=== PATIENT | male | born 1975 | race Caucasian/White ===

== ENCOUNTER 2020-05-12 08:01 | Observation (INO) | payer OTHER, SELFPAY ==
[2020-05-12] VITALS (9 sets, daily range): BP systolic 114–153; BP diastolic 65–90; PULSE 75–94; RESP 11–18; TEMP 36.4–37; O2SAT 95–98; BMI 39.4; BMI 40.7
--- NOTE | 2020-05-12 08:54 | EKG12_ITS ---
Test Reason : GI BLEED Blood Pressure : / mmHG Vent. Rate : 091 BPM Atrial Rate : 091 BPM P-R Int : 132 ms QRS Dur : 090 ms QT Int : 386 ms P-R-T Axes : 059 016 035 degrees QTc Int : 474 ms Normal sinus rhythm Nonspecific T- wave Abnormality Inferior MT, age undetermined, cannot be excluded Confirmed by KAVON HOOD, AN AMARIA ([id number]), deputy editor in chief HERIBERTO MEDRANO ([id number]) on 05/17/2020 10:44:40 AM Referred By: PEARL Confirmed By:ANA MARIA JACOBSON MD
[2020-05-12 09:02] LABS: Absolute Lymphocyte Count 2.05 X10^3/uL (0.83-4.51); Absolute Neutrophil Count 5.8 X10^3/uL (2.0-7.7); Basophil# 0.05 X10^3/uL; Basophil% 0.6 % (0-1); Eosinophil# 0.03 X10^3/uL; Eosinophils% 0.4 % (0-5); Hematocrit 40.9 % (40-54); Hemoglobin 13.5 g/dL (13.0-16.5); Lymphocyte # 2.05 X10^3/ul (4.0); Lymphocyte % 23.9 % (19-41); Mean Corpuscular Hgb 31.5 pg (27.0-32.0); Mean Corpuscular Volume 95.3 fL (80-94); Mean Platelet Vol. 10.5 fl (6.2-12.0); Monocyte# 0.55 X10^3/uL; Monocyte% 6.4 % (0-10); NRBC Flagged by Analyzer 0 % (0-5); Neutrophil # 5.78 X10^3/uL (2.7-7.7); Neutrophil % 67.4 % (47-70); Platelet Count 238 K/mm3 (150-450); RBC Distribution Width CV 12.1 % (11.6-14.6); RBC Distribution Width SD 41.7 fl (35.1-43.9); Red Blood Count 4.29 M/mm3 (4.6-6.2); White Blood Count 8.6 K/mm3 (4.4-11.0)
--- NOTE | 2020-05-12 09:17 | ED.VIS.GEN ---
History of Present Illness Chief Complaint: Dizziness Informant: Patient Narrative: Patient is a 45-year-old male with a past medical history of CAD with stents placed who presents to the emergency department for chest pain, shortness of breath. His symptoms have been present since Friday. He did go to an urgent care on Friday and had a coronavirus test which she states was negative. Taking deep breaths does seem to aggravate the pain. Exertion does not make his symptoms worse. Has been constant. Currently rates it as a 6 out of 10. He did take aspirin today. He has not been on Plavix lately but took a leftover dose at the onset of the symptoms. He also took a metoprolol which he has not been taking. He states he did have a fever at the onset of symptoms which was 101 but resolved very quickly without treatment. He has not had a fever since. He denies any calf swelling or leg pain. No prolonged tolerance of immobilization. No history of DVT/PE. Denies any abdominal pain. He has been feeling nauseous but no vomiting. He states at one point he felt like his lips were turning blue. He has been dizzy. Certain head positions do make his dizziness worse. He states that this is resolving. No ear pain or ringing in the ears. No sore throat. No known sick contacts. States he has been very compliant with his mask. He denies smoking cigarettes but did smoke cigars previously. He does have a family history of cardiac disease. Past Medical History - Allergies and Home Meds Allergies/Adverse Reactions: Allergies No Known Allergies Allergy (Verified 05/12/20 08:05) Prior records reviewed: Yes Past Medical History: - - CAD with stents Smoking Status: Former smoker Drugs: None Review of Systems All systems negative except as indicated General: Reports: Fever - Hold. Denies: Chills, Sweats Eyes: Denies: Visual changes - bilaterally, Diplopia ENT: Denies: Rhinorrhea, Sore throat Cardiovascular: Reports: Chest pain. Denies: Palpitations Respiratory: Reports: Dyspnea. Denies: Cough, Dyspnea on exertion Gastrointestinal: Denies: Abdominal pain, Nausea, Vomiting, Diarrhea Musculoskeletal: Denies: Back pain, Extremity Pain Skin: Denies: Rash, Wounds Neurological: Denies: Headache, Weakness, Numbness Physical Exam Vital Signs/Narrative: Vital Signs Temp Pulse Resp BP Pulse Ox 07/31/20 08:21 98 F 82 12 125/90 H 97 05/12/20 08:02 98 F 88 18 153/76 H 97 Inital Vital Signs reviewed: Yes General: Well nourished, Well developed, No Acute Distress Head: Normocephalic, Atraumatic Eyes: Perrl, EOMI ENT: Moist mucous membranes, No rhinorrhea Neck: Supple, Nontender Cardiovascular: Regular rate, Regular rhythm, No murmurs Respiratory: No distress, CTA bilaterally, Chest nontender Abdomen: Soft, Nontender, Nondistended, Normal bowel sounds Back: Nontender, Normal Inspection Extremities: Nontender, No edema. Negative for: Edema, Calf Tenderness Skin: Normal color, No rash Neurological: Alert, Oriented x3, Cranial nerves II-XII grossly intact, Normal Strength, Normal Sensation Psychological: Normal affect, Normal Mood Diagnostic/Tx/Re-eval - EKG Initial EKG Interpretation: - - Rate of 83 bpm and normal sinus rhythm. Normal intervals. Normal axis. No ST elevations or depressions appreciated. Patient does appear to have an S1Q3T3 pattern. Otherwise no other T wave changes. - Medical Decision Making Patient presents to the emergency department for chest pain and shortness of breath. He does have a history of coronary artery disease. EKG, chest x-ray basic lab work being obtained. Urine tested negative for coronavirus this week. Chest x-ray did not show any acute cardiopulmonary abnormality. EKG was not significant for ischemia or arrhythmia. His initial troponin negative. Lab work did not show any significant acute abnormality. Given patient's risk factors including 2 previous stents, dizziness, continued chest pain without a cough I do feel patient best be served in the hospital setting. He did take aspirin prior to coming in today. Patient discussed with hospitalist. He otherwise has been stable throughout ED stay. He is agreeable with this plan. He has not been hypoxic, tachycardic without any unilateral leg swelling or DVT/PE risk factors. Low concern for this. ED Disposition - Plan for ED Patient: Disposition: Acute Care Hospital [facility] Diagnosis: Atypical chest pain, Dyspnea
--- NOTE | 2020-05-12 09:20 | RAD_ITS ---
STUDY: X-RAY CHEST REASON FOR EXAM: Male, 45 years old. DIZZINESS AND INTERMITTENT CP SINCE FRIDAY -- HX MO X2 TECHNIQUE: Single AP portable view of the chest. COMPARISON: None. FINDINGS: EKG electrodes are seen. The lungs are clear and expanded. There is no demonstrated pleural abnormality. Normal size heart. Normal mediastinum and wilder. Normal visualized pulmonary arteries. Normal visualized aortic arch and descending thoracic aorta. Normal visualized thoracic spine. Normal visualized ribs, clavicles, and shoulders. There is no demonstrated abnormality of the visualized soft tissue structures of the upper abdomen. RAD/Chest 1 View (Portable) IMPRESSION: Normal x-ray examination of the chest. Electronically Signed: Neel Begum, at 10:03 EDT , Service support ,
[2020-05-12 09:21] LABS: Anion Gap 3 (5-15); BUN 35 mg/dL (7-18); BUN/Creat Ratio 34.7 RATIO (10-20); Calcium,Total 9.3 mg/dL (8.5-10.1); Chloride 108 mmol/L (98-107); Creatinine, Serum 1.01 mg/dL (0.70-1.30); EST Glomerular Filtration Rate 86 mL/min (>60); Est Glom Filt Rate - Afr Amer 104 mL/min (>60); Estimated Creatinine Clearance 97.37 ml/min; Glucose 117 mg/dL (74-106); Magnesium 1.9 mg/dL (1.6-2.6); Potassium 4.2 mmol/L (3.5-5.1); Sodium Level 137 mmol/L (136-145)
[2020-05-12 09:43] LABS: D-Dimer Quantitative (DVT/PE) <= 0.27 FEU/ug/m (0.27-0.49)
--- NOTE | 2020-05-12 11:21 | NURSING ---
BRIGITTEU OBS OSMANI BOLAÑOS
--- NOTE | 2020-05-12 11:43 | ED.RN ---
covid order was cancelled d/t pt being tested on friday at 1430 and it was negative.
--- NOTE | 2020-05-12 15:11 | STRESSREP ---
Stress Test Report Date: 05/12/2020 Procedure: Pharmacologic stress nuclear imaging study Indications: Chest pain Consent: Per the patient Procedure: The patient underwent pharmacologic (Regadenoson) evaluation with a peak heart rate of 116 beats per minute (65 %predicted maximal heart rate) and a peak blood pressure of 148/82 mmHg. The baseline ECG demonstrated sinus rhythm. EKG during lexiscan infusion revealed no significant ischemic changes. EKG post infusion revealed no significant ischemic changes [There were no cardiac dysrhythmias pretest, during pharmacologic infusion, or recovery]. [There was no complaint of chest discomfort during pharmacologic infusion or recovery]. The examination was discontinued secondary to completion of protocol. Impression: 1. Lexiscan stress test test is negative for Lexiscan infusion induced EKG changes of ischemia. 2. Lexiscan stress test test is negative for Lexiscan infusion induced chest pain. 3. Results of the nuclear portion of the test is as below Myocardial perfusion imaging study: Technique: The patient was injected with 14.4 millicuries of technetium 99m Cardiolite and subsequently rest SPECT Cardiolite nuclear imaging was obtained in the horizontal long, vertical long, and short axis views. The patient underwent pharmacologic (Regadenoson) evaluation. Please see above for details. The patient was injected with 44.9 millicuries of technetium 99m Cardiolite and subsequently stress SPECT Cardiolite nuclear imaging was obtained in the horizontal long, vertical long, and short axis views. A gated Cardiolite study at peak stress was obtained. Interpretation: Rest and stress SPECT Cardiolite nuclear imaging status post realignment, normalization, and attenuation correction demonstrate mildly decreased radioisotope uptake in the inferior wall on both the rest and stress images. On the stress images there is also decrease in the radioisotope uptake in the anterior wall. Gated images reveal mild inferior hypokinesis. The reported LVEF is 51 %. These findings are suggestive of prior inferior infarction and mild anterior ischemia. Impression: 1. There is possible mild anterior ischemia. 2. Estimated ejection fraction is 51%. This note was generated with [employer] (mytaxi)ation software. It may contain incorrect words, spelling, and punctuation that were not noted in checking the note before signing.
--- NOTE | 2020-05-12 15:33 | DCINST_ITS ---
- Discharge Diagnoses Current Active Problems: Current Active and Chronic Problems Atypical chest pain (Acute) Dyspnea (Acute) You will use the following diet at home:: No restrictions Your food should be the consistency of: Regular Your liquids should be the consistency of: Regular/Thin Discharge Activity: Return to Normal Activity Weight Bearing Status: Full weight bearing Additional Instructions: return to ER if having severe chest pain or persistent chest pain Allergies/Adverse Reactions: Allergies No Known Allergies Allergy (Verified 05/12/20 08:05) Medications to take at Discharge Aspirin [Aspirin EC] 81 mg PO DAILY #1 tablet. 05/12/20 Atorvastatin Calcium [Lipitor] 40 mg PO DAILY #30 tab 05/12/20 Clopidogrel Bisulfate [Plavix] 75 mg PO DAILY #30 tab 05/12/20 Metoprolol Tartrate 25 mg PO BID #60 tab 05/12/20 Nitroglycerin [Nitrostat] 0.4 mg SL UD #25 tab.subl 05/12/20 The following prescriptions were given: Aspirin [Aspirin EC] 81 mg PO DAILY #1 tablet. Atorvastatin Calcium [Lipitor] 40 mg PO DAILY #30 tab Transmission Status: [facility] by [id number] Metoprolol Tartrate 25 mg PO BID #60 tab Transmission Status: Received by [id number] Nitroglycerin [Nitrostat] 0.4 mg SL UD #25 tab.subl Transmission Status: Received by [id number] Clopidogrel Bisulfate [Plavix] 75 mg PO DAILY #30 tab Transmission Status: Received by [id number] Primary Care Physician: Kristyn Crouch PA-C [Primary Care Provider] - Test Results: Test results from this visit will be discussed in further detail at your follow- up appointment, if applicable. Please Follow Up With: Dom Blackwood MD When: for heart cath-office will call you
[2020-05-12 15:51] LABS: Cholesterol 213 mg/dL (200); High Density Lipoprotein 29 mg/dL; Triglycerides 270 mg/dL; Very Low Density Lipoprotein 54 mg/dL (5-40)
--- NOTE | 2020-05-12 15:52 | HP.PCM_ITS ---
Problem List (1) Atypical chest pain Status: Acute History of Present Illness Date of Admission: 05/12/20 Chief Complaint: Chest pain The patient is a 45 year old M seen at emergency room at [facility] with chief complaint of chest pain x5 days continuously, he states that the chest pain is located in the precordial area and he describes it as an ache, does not radiate into the neck or down the arm. Patient had a previous angioplasty and stent placement in 2017 but is gone off of all his cardiac medications he states with the consent of his stationary engineer who he has not seen in a year and a half. Patient's work-up in the emergency room included an EKG which showed a normal sinus rhythm with no evidence of ischemic changes, chest x-ray was unremarkable, lab work was unremarkable. Patient was placed in observation status on PCU, a nuclear stress test was ordered for today. Past Medical History Allergies No Known Allergies Allergy (Verified 05/12/20 08:05) Home Medications: Ambulatory Orders Medication Instructions Recorded Aspirin [Aspirin EC] 81 mg PO DAILY #1 tablet.dr 05/12/20 Atorvastatin Calcium [Lipitor] 40 mg PO DAILY #30 tab 05/12/20 Clopidogrel Bisulfate [Plavix] 75 mg PO DAILY #30 tab 05/12/20 Metoprolol Tartrate 25 mg PO BID #60 tab 05/12/20 Nitroglycerin [Nitrostat] 0.4 mg SL UD #25 tab.subl 05/12/20 Surgical History: - - Angioplasty and cardiac stent placement 2016 Psychiatric History: No pertinent psych hx Lives: Spouse/ Significant Other Smoking Status: Former smoker Tobacco Use: Non-smoker Alcohol: None Drugs: None - *Family History Maternal History Items: No pertinent history Paternal History Items: No pertinent history Review of Systems Constitutional: Denies: Anorexia, Chills, Fever, Night Sweats, Malaise, Weakness, Weight Change, Fatigue Eyes: Denies: Cataracts, Conjunctivae Inflammation, Double vision, Drainage HEENT: Denies: Difficulty Swallowing, Dysphasia, Ear Pain, Eye Pain, Hearing Changes, Nasal bleeding, Nasal Congestion, Post Nasal Drip Cardiovascular: Reports: Chest Pain. Denies: Claudication, Heaviness, Light Headedness, Orthopnea, Palpitations, Paroxysmal Noc. Dyspnea, Syncope Respiratory: Denies: Cough, Hemoptysis, Pleuritic Pain, Shortness of Breath, Shortness of breath at rest, Shortness of breath upon exertion, Sputum production Gastrointestinal: Denies: Abdominal Pain, Constipation, Diarrhea, Hematemesis, Hematochezia, Nausea, Melena, Vomiting Genitourinary: Denies: Dysuria, Frequency, Hematuria, Hesitancy, Nocturia, Retention, Urgency Musculoskeletal: Denies: Back Pain, Foot Pain, Hand Pain, Joint Pain, Joint stiffness, Joint swelling, Joint Tenderness, Leg Pain Skin: Denies: Dryness, Jaundice, Pruritis, Rash Neurological: Reports: Headaches - History of migraine headaches. Denies: Blurred vision, Double vision, Change in Speech, Slurred speech, Difficulty swallowing, Focal weakness, Numbness, Tingling Psychiatric: Denies: Anxiety, Depression, Homicidal Ideations, Suicidal Ideations Endocrine: Denies: Change in Body Habitus, Heat/ Cold Intolerance, Polydipsia, Polyuria Hematologic/ Lymphatic: Denies: Adenopathy, Anemia, Easy Bruising, Easy Bleeding, Petechiae, Purpura VTE Information - Inpt Only VTE Present on Admission: No VTE Mechan Device Prophylaxis: None VTE Pharm Prophylaxis ordered?: No Reason prophylaxis not ordered:: Treatment Not Indicated Patient Problems: Active and Suspected Problems Atypical chest pain (Acute) Dyspnea (Acute) - Physical Exam Vitals/I&O's: Vital Signs Temp Pulse Resp BP Pulse Ox 98.6 F 94 14 139/81 H 96 05/12/20 13:40 05/12/20 13:45 05/12/20 13:40 05/12/20 13:40 05/12/20 13:40 Oxygen Delivery Method Room Air Weight: 128.7 kg Body Mass Index (BMI) 40.7 General: Alert, Oriented x3, Cooperative, No apparent distress, Well developed, Well nourished HEENT: Atraumatic, PERRLA, EOMI, Normocephalic Oral: Moist Mucosa Neck: Supple, No JVD, Negative Carotid Bruits, No Nuchal Rigidity, Trachea Midline, Thyroid Normal Size and Texture Lungs: Clear to auscultation, Normal air movement, No rhonchi, No wheeze, No rales Cardiovascular: Regular rate, Regular Rhythm, Normal S1, Normal S2, No murmurs, PMI Normal, No rub noted, No Gallop Abdomen: Bowel Sounds Present, Soft, Non Tender, Non-Distended, Obese Extremities: No clubbing, No cyanosis, No edema, Capillary Refill Less than 3 Seconds Skin: No rashes, No breakdown Musculoskeletal: No Tenderness to Palpation of Joints or Extremities, No Muscle Wasting Neurological: Cranial nerves II-XII grossly intact, Neuro grossly intact, Muscle tone normal, Sensory exam intact to light touch and pain, Coordination normal Psych/Mental Status: Normal Affect, Appropriate, Alert and oriented to time, place, person, mood and affect Laboratory Results 05/12/20 08:20: WBC 8.6, RBC 4.29 L, Hgb 13.5, Hct 40.9, MCV 95.3 H, MCH 31.5, MCHC 33.0, RDW Std Deviation 41.7, RDW Coeff of Colby 12.1, Plt Count 238, MPV 10.5, Immature Gran % (Auto) 1.300 H, Neut % (Auto) 67.4, Lymph % (Auto) 23.9, [place] % (Auto) 6.4, Eos % (Auto) 0.4, Baso % (Auto) 0.6, Absolute Neuts (auto) 5.8, Absolute Lymphs (auto) 2.05, Nucleated RBC % 0 05/12/20 08:20: Sodium 137, Potassium 4.2, Chloride 108 H, Carbon Dioxide 26.0, Anion Gap 3 L, BUN 35 H, Creatinine 1.01, Estim Creat Clear Calc 97.37, Est GFR (MDRD) Af Amer 104, Est GFR (MDRD) Non-Af 86, BUN/Creatinine Ratio 34.7 H, Glucose 117 H, Calcium 9.3, Magnesium 1.9, Troponin I < 0.015 05/12/20 08:20: D-Dimer Quant (PE/DVT) <= 0.27 05/12/20 12:50: Troponin I < 0.015 05/12/20 12:50: Triglycerides 270 H, Cholesterol 213 H, LDL Cholesterol 130, VLDL Cholesterol 54 H, HDL Cholesterol 29 L Current Medications Acetaminophen (Tylenol) 650 mg PO Q6H PRN PRN PRN Reason: Pain Score 1-10/Temp > 100.7 F Sodium Chloride () 10 - 40 ml IV UD PRN PRN Reason: SALINE FLUSH Assessment/Plan All Active Problems Atypical chest pain (Acute) Dyspnea (Acute) #1 atypical chest pain-etiology unclear at this point, patient was placed in observation status on PCU, he will have a nuclear stress test performed today #2 morbid obesity #3 history of coronary artery disease OBSV E&M: 53128 Initial observation care L3
--- NOTE | 2020-05-12 18:34 | PCM.DC.SUM ---
Discharge Date and Diagnosis Date of Admission: 05/12/20 Date of Discharge: 05/12/20 - Primary Discharge Diagnosis Acute Problems: #1 musculoskeletal chest pain #2 coronary artery disease #3 nuclear stress test indicating possible mild anterior ischemia Hospital Course and Treatment Imaging Results: 05/12/20 11:51 Nuclear Stress Test - Chemical [NM] Stat Operations: None Procedures: Nuclear stress test Summary of Care Provided: The patient is a 45 year old M was seen in the emergency room at [facility] with a chief complaint of chest pain which had been continuous for approximately 5 days, he complained of precordial chest discomfort that he described as an ache without radiation. Patient had a history of coronary artery disease with a stent and angioplasty approximately 3 years prior, he had stopped all his cardiac medications with the consent of his bell captain according to the patient. Work-up in the emergency room included an EKG which showed normal sinus rhythm without ischemic changes, patient's labs were unremarkable including his troponin, patient's chest x-ray was unremarkable. Patient was placed in the observation status on PCU and a nuclear pharmacological stress test was carried out which was possibly positive for mild anterior ischemic changes., I discussed this with the on-call bell captain and he could not be positive that this actually indicated ischemia but recommended the patient consider staying until Friday for a cardiac catheterization and if he chose to go home, follow-up with him for a cardiac catheterization in the immediate future. I discussed this with the patient and his significant other who was in his room today, he decided that he would like to go home and follow-up closely as an outpatient for cardiac catheterization. Patient was seen and examined on 05/12/2020: On examination he appeared in good health and spirits. Vital signs as documented. Skin warm and dry and without overt rashes. Neck without JVD, neck was supple, trachea midline, thyroid was normal. Lungs clear bilaterally, normal air movement was noted. Heart exam notable for regular rhythm, normal sounds and absence of murmurs, rubs or gallops. Abdomen unremarkable and without evidence of organomegaly, masses, or abdominal aortic enlargement. Bowel sounds are present, abdomen is not distended. Extremities nonedematous, no cyanosis was noted, no clubbing was noted. Neuro: Cranial nerves II through XII are grossly intact, no focal motor deficits were noted, sensation to light touch and pinprick intact, motor exam 5/5 throughout. Psych: Patient is alert and oriented x3, he does not appear anxious or depressed, he does not appear agitated. Patient was discharged in stable condition on 05/12/2020, he was placed on a statin, low-dose aspirin, Plavix, beta-ortiz, and as needed sublingual nitroglycerin. Patient was instructed to return to the hospital if he had persistent chest pain that was unrelieved with nitroglycerin. - Physical Exam Vitals/I&O's: Vital Signs Temp Pulse Resp BP Pulse Ox 98.6 F 94 14 139/81 H 96 05/12/20 13:40 05/12/20 13:45 05/12/20 13:40 05/12/20 13:40 05/12/20 13:40 Oxygen Delivery Method Room Air Weight: 128.7 kg Body Mass Index (BMI) 40.7 Laboratory Results 05/12/20 08:20: WBC 8.6, RBC 4.29 L, Hgb 13.5, Hct 40.9, MCV 95.3 H, MCH 31.5, MCHC 33.0, RDW Std Deviation 41.7, RDW Coeff of Colby 12.1, Plt Count 238, MPV 10.5, Immature Gran % (Auto) 1.300 H, Neut % (Auto) 67.4, Lymph % (Auto) 23.9, [place] % (Auto) 6.4, Eos % (Auto) 0.4, Baso % (Auto) 0.6, Absolute Neuts (auto) 5.8, Absolute Lymphs (auto) 2.05, Nucleated RBC % 0 05/12/20 08:20: Sodium 137, Potassium 4.2, Chloride 108 H, Carbon Dioxide 26.0, Anion Gap 3 L, BUN 35 H, Creatinine 1.01, Estim Creat Clear Calc 97.37, Est GFR (MDRD) Af Amer 104, Est GFR (MDRD) Non-Af 86, BUN/Creatinine Ratio 34.7 H, Glucose 117 H, Calcium 9.3, Magnesium 1.9, Troponin I < 0.015 05/12/20 08:20: D-Dimer Quant (PE/DVT) <= 0.27 05/12/20 12:50: Troponin I < 0.015 05/12/20 12:50: Triglycerides 270 H, Cholesterol 213 H, LDL Cholesterol 130, VLDL Cholesterol 54 H, HDL Cholesterol 29 L Discharge Activity: Return to Normal Activity Weight Bearing Status: Full weight bearing Home Medications: Medications to take at Discharge Aspirin [Aspirin EC] 81 mg PO DAILY #1 tablet. 05/12/20 Atorvastatin Calcium [Lipitor] 40 mg PO DAILY #30 tab 05/12/20 Clopidogrel Bisulfate [Plavix] 75 mg PO DAILY #30 tab 05/12/20 Metoprolol Tartrate 25 mg PO BID #60 tab 05/12/20 Nitroglycerin [Nitrostat] 0.4 mg SL UD #25 tab.subl 05/12/20 Following Prescriptions Were Given to Patient: Aspirin [Aspirin EC] 81 mg PO DAILY #1 tablet. Atorvastatin Calcium [Lipitor] 40 mg PO DAILY #30 tab Transmission Status: [id number] Metoprolol Tartrate 25 mg PO BID #60 tab Transmission Status: Received by [id number] Nitroglycerin [Nitrostat] 0.4 mg SL UD #25 tab.subl Transmission Status: Re[id number] Clopidogrel Bisulfate [Plavix] 75 mg PO DAILY #30 tab Transmission Status: Re[facility] by [id number] Primary Care Physician: Kristyn Crouch PA-C [Primary Care Provider] - Please Follow Up With: Dom Blackwood MD When: for heart cath-office will call you Disposition: Home Minutes spent on discharge:: 30 Patient Condition:: Stable Medical Necessity - Tobacco Use Smoking Status: Former smoker Tobacco Use: Non-smoker Meaningful Use Info Meaningful Use Diagnoses (Choose all that apply): None applicable OBSV E&M: 22545 Observ/hosp same date L3
== END 2020-05-12 15:33 | disposition home or self-care (01) ==
LOC: ED 10:47 → PCU 12:23
PROVIDERS: Admitting Provider Internal Medicine; Emergency Provider Emergency Medicine; PCP Family Medicine; Visit Provider Internal Medicine
DX: R07.89 Other chest pain (principal); I25.10 Atherosclerotic heart disease of native coronary artery without angina pectoris; Z95.5 Presence of coronary angioplasty implant and graft; R06.02 Shortness of breath; R42 Dizziness and giddiness; F17.290 Nicotine dependence, other tobacco product, uncomplicated; Z82.49 Family history of ischemic heart disease and other diseases of the circulatory system; Z79.899 Other long term (current) drug therapy; Z79.82 Long term (current) use of aspirin; E66.01 Morbid (severe) obesity due to excess calories; Z68.41 Body mass index [BMI] 40.0-44.9, adult; Z79.02 Long term (current) use of antithrombotics/antiplatelets
CPT/HCPCS: 36415; 71045; 78452; 80048; 80061; 83735; 84484; 85025; 85379; 93005; 93017; 99285; A9500; A4216; J2785

== ENCOUNTER 2020-05-14 18:18 | Inpatient (IN) | payer SELFPAY ==
[2020-05-12 13:21] VITALS: BMI 40.7
[2020-05-14] VITALS (20 sets, daily range): BP systolic 85–131; BP diastolic 35–70; PULSE 101–128; RESP 12–24; TEMP 36.6–38.2; O2SAT 97–100; BMI 38.7; BMI 40.5
--- NOTE | 2020-05-14 18:35 | RAD_ITS ---
STUDY: X-RAY CHEST REASON FOR EXAM: Male, 45 years old. VOMITING BLOOD. TECHNIQUE: Single AP portable view of the chest. COMPARISON: 05/12/2020. FINDINGS: Nasogastric tube traverses the thorax. Terminus is not seen. The lungs are clear and expanded. There is no demonstrated pleural abnormality. Normal size heart. Normal mediastinum and wilder. Normal visualized pulmonary arteries. Normal visualized aortic arch and descending thoracic aorta. Normal visualized thoracic spine. Normal visualized ribs, clavicles, and shoulders. There is no demonstrated abnormality of the visualized soft tissue structures of the upper abdomen. RAD/Chest 1 View (Portable) IMPRESSION: Normal x-ray examination of the chest. Electronically Signed: Deb Montoya MD at 20:12 EDT Tel , Service support ,
--- NOTE | 2020-05-14 18:35 | EKG12_ITS ---
Test Reason : CP Blood Pressure : / mmHG Vent. Rate : 083 BPM Atrial Rate : 083 BPM P-R Int : 140 ms QRS Dur : 088 ms QT Int : 356 ms P-R-T Axes : 052 000 033 degrees QTc Int : 418 ms Normal sinus rhythm Normal ECG Confirmed by NADYA HOOD, RHINA ([id number]), news assignment editor YAEL MEDEROS ([id number]) on 05/16/2020 9:25:31 AM Referred By: Dom Blackwood Confirmed By:RHINA COVINGTON MD
--- NOTE | 2020-05-14 18:37 | ED.VIS.GI ---
History of Present Illness Chief Complaint: GI Bleed Informant: Patient - Abdominal Pain/Flank Pain Onset: Yesterday Timing: Intermittent Quality: Aching Location: Epigastric, LUQ Current Severity: Gone Maximum Severity: Moderate Worsened by: Nothing Relieved by: Nothing - Nausea/Vomiting/Emesis GI Symptom: Nausea, Vomiting Onset: Yesterday Quality: Hematemesis Episodes: 2 - Diarrhea/Melena/Hematochezia GI Symptom: Melena. Negative for: Diarrhea, Hematochezia Associated Symptoms: Negative for: Dysuria, Frequency, Hematuria, Urgency Narrative: Patient was recently admitted for chest pain overnight, had a stress test that was negative and was discharged 2 days ago. He states after getting home, he started getting some upper abdominal pain. The next day, yesterday, he vomited a lot of blood wants. He felt lightheaded but no syncope, he did feel close though. Today he vomited a lot of blood another time, and he became lightheaded and passed out. He does not take daily Plavix, but he took it prior to coming in for chest pain a couple days ago. He had a leftover from when he had stents in the past. He does take a baby aspirin. He also states that he takes ibuprofen fairly frequently, about 3 or 4 times a week for her neck and back aches which are not bothersome right now. No known history of peptic ulcer disease. Right now he feels very weak and malaised, but has no lightheadedness currently. He also denies having any chest pain or shortness of breath currently. - Past Medical History (1) Coronary artery disease Status: Chronic Past Medical History - Allergies and Home Meds Allergies/Adverse Reactions: Allergies No Known Allergies Allergy (Verified 05/14/20 18:25) Primary Care Physician: Kristyn Crouch PA-C [Primary Care Provider] - Surgical History: - - Angioplasty and cardiac stent placement 2017 Smoking Status: Never smoker - Family History Maternal Family History: Reports: No pertinent history Paternal Family History: Reports: No pertinent history Review of Systems General: Reports: Malaise, Sweats. Denies: Chills, Fever Eyes: Denies: Visual changes - bilaterally, Diplopia ENT: Denies: Bilateral ear pain, Rhinorrhea, Sore throat Cardiovascular: Denies: Chest pain, Palpitations Respiratory: Denies: Dyspnea, Cough, Dyspnea on exertion Gastrointestinal: Reports: Abdominal pain, Nausea, Vomiting, Melena. Denies: Hematochezia Genitourinary: Denies: Dysuria, Hematuria, Frequency Musculoskeletal: Denies: Back pain, Swelling, Extremity Pain Skin: Denies: Rash, Wounds Neurological: Reports: - - Syncope, see HPI. Denies: Headache, Weakness, Numbness Physical Exam Vital Signs/Narrative: Vital Signs Temp Pulse Resp BP Pulse Ox 05/14/20 18:34 98.6 F 103 H 18 85/35 L 99 05/14/20 18:25 98.6 F 103 H 18 85/35 L 99 05/14/20 18:23 98.6 F 103 H 18 85/35 L 99 Inital Vital Signs reviewed: Yes General: Well nourished, Well developed, No Acute Distress - But appears malaised and pale Head: Normocephalic, Atraumatic Eyes: Perrl, EOMI ENT: Moist mucous membranes, No rhinorrhea Neck: Supple, Nontender Cardiovascular: Regular rate, Regular rhythm, No murmurs, Tachycardia Respiratory: No distress, CTA bilaterally, Chest nontender Abdomen: Soft, Nondistended, Normal bowel sounds, Tender - Mild epigastric and right upper quadrant. Negative for: Guarding, Rebound tenderness Back: Nontender, Normal Inspection Extremities: Nontender, No edema Skin: Normal color, No rash, Diaphoresis, Pallor Neurological: Alert, Oriented x3, Cranial nerves II-XII grossly intact, Normal Strength, Normal Sensation Psychological: Normal affect, Normal Mood Diagnostic/Tx/Re-eval - Rhythm Strip Rhythm Strip: Sinus Rhythm Rate: 91 Ectopy: None - EKG Initial EKG Interpretation: Sinus Rhythm, No Acute Injury Pattern - normal ekg - Medical Decision Making On rectal exam the patient has melanotic stool without bright red blood. Concern is for upper GI hemorrhage. Immediately ordered is IV fluid bolus, Zofran, IV Protonix 80 mg, a chest x-ray to rule out free air, and an NG tube to quantify the amount of bleeding that may be going on in his stomach in addition to basic labs, troponin, type and screen, EKG. Initially the NG was attempted to be placed, but the patient was sat up for it, and then had another syncopal episode so that was delayed, he was lied down, we finished the first bolused liter of fluid and started the second. His blood pressure improved, now 131/51, then the NG was able to be passed. Just prior to this, he vomited up a large amount of blood with clots. There is about 100 cc of blood out of the NG, there is no active flow through it now, it was left in. On my interpretation, 1 view chest x-ray and 1 view KUB show good NG tube placement, and no free air or acute pulmonary abnormality. His hemoglobin returned at 6.2. He is typed and crossed for 1 unit after verbal consent for packed red blood cell transfusion is obtained. I discussed with Dr. Meraz, she came to scope the patient emergently for further evaluation. During the scope, it was evident that there was no more active bleeding. There were a couple of irritated areas at the GE junction and in the stomach, the duodenum was clean, there was 1 area that was difficult to tell if it was an unusual angiodysplasia, or traumatic tear, possibly related to NG tube placement, less likely Sirisha-Delgado given the history. Since there is no active bleeding, we discontinued the NG tube. Protonix drip was started, discussed with hospitalist for admission to ICU. Procedures Procedure(s): Procedural sedation for endoscopy: Patient had been n.p.o. for 6+ hours. Informed consent was obtained from the and patient. He was sedated with propofol, a total of 200 mg was given. Initially he was given 160 mg, his blood pressure was in the high 90s after that sedated him successfully. He was then given #2 20-milligram aliquots. He recovered uneventfully. Critical care time (excluding procedures): 30-74 minutes - 35 minutes, including time spent discussing with patient and family, consultants, arranging admission, and performed direct patient care at the bedside/performing documentation ED Disposition - Plan for ED Patient: Disposition: Acute Care Hospital [facility] Diagnosis: Acute upper GI bleed, Hemorrhagic shock, Acute blood loss anemia Referrals: Kristyn Crouch PA-C [Primary Care Provider] -
[2020-05-14] MEDS: 0.9% Normal Saline 1,000 ML 999 ML IV ×2 (18:42→19:25)
[2020-05-14] MEDS: Ondansetron 4 MG/2 ML Vial IV (18:44)
[2020-05-14 18:47] LABS: Absolute Lymphocyte Count 6.55 X10^3/uL (0.83-4.51); Absolute Neutrophil Count 9.6 X10^3/uL (2.0-7.7); Basophil# 0.08 X10^3/uL; Basophil% 0.4 % (0-1); Eosinophil# 0.17 X10^3/uL; Eosinophils% 0.9 % (0-5); Hematocrit 18.6 % (40-54); Hemoglobin 6.2 g/dL (13.0-16.5); Lymphocyte # 6.55 X10^3/ul (4.0); Lymphocyte % 35.7 % (19-41); Mean Corp Hgb Conc 33.3 g/dL (32-36); Mean Corpuscular Hgb 32.5 pg (27.0-32.0); Mean Corpuscular Volume 97.4 fL (80-94); Mean Platelet Vol. 10.4 fl (6.2-12.0); Monocyte# 1.28 X10^3/uL; Neutrophil # 9.57 X10^3/uL (2.7-7.7); Neutrophil % 52.3 % (47-70); POSITIVE DIFFERENTIAL YES; POSITIVE MORPHOLOGY YES; Platelet Count 243 K/mm3 (150-450); RBC Distribution Width CV 12.6 % (11.6-14.6); RBC Distribution Width SD 42.8 fl (35.1-43.9); Red Blood Count 1.91 M/mm3 (4.6-6.2); White Blood Count 18.3 K/mm3 (4.4-11.0)
[2020-05-14 18:52] LABS: Differential Indicated SCAN CRITERIA MET
[2020-05-14 19:01] LABS: Anion Gap 13 (5-15); BUN 30 mg/dL (7-18); BUN/Creat Ratio 25.2 RATIO (10-20); Calcium,Total 7.7 mg/dL (8.5-10.1); Chloride 109 mmol/L (98-107); Creatinine, Serum 1.19 mg/dL (0.70-1.30); EST Glomerular Filtration Rate 71 mL/min (>60); Est Glom Filt Rate - Afr Amer 86 mL/min (>60); Estimated Creatinine Clearance 82.64 ml/min; Glucose 190 mg/dL (74-106); Potassium 3.4 mmol/L (3.5-5.1); Sodium Level 142 mmol/L (136-145)
[2020-05-14 19:11] LABS: Differential Comment SCANNED; Polychromasia RARE
--- NOTE | 2020-05-14 19:40 | RAD_ITS ---
STUDY: X-RAY - ABDOMEN/PELVIS REASON FOR EXAM: Male, 45 years old. NG PLACEMENT TECHNIQUE: AP abdomen. COMPARISON: None. FINDINGS: Normal visualized lung bases. NG tube terminates in the gastric body. Upper abdomen shows no dilated small bowel loops. Soft tissues and bony structures are unremarkable. RAD/Abdomen Single View (Portable) IMPRESSION: NG tube terminates in the stomach. Electronically Signed: Deb Montoya MD at 20:14 EDT Tel , Service support ,
--- NOTE | 2020-05-14 20:36 | CON.PCM_ITS ---
- Consult Date of Consult: 05/14/20 - Reason for Consult Chief Complaint: upper GI bleed History of Present Illness: 45 y/o WM presents with complaint of upper abdominal pain. Yesterday had hematemesis. He did feel light headed. Today, he had another episode of hematemesis and pa ssed out. He was brought to ED. He had presented previously to hospital for chest pain for which stress test was negative. Does note melanotic stools In the ED, found to have Hgb of 6.2, with normal plt count. Also hypotensive. NG tube placed with coffee grounds noted Denies history of PUD, denies previous EGD. Past Medical History: coronary artery disease Past Surgical History: coronary artery stent placement Medications: aspirin atorvastatin metoprolol nitrostat prn Allergies: Has no known drug allergies Social history: TOB use denies Review of Systems: General - denies fevers Cardiovascular denies chest pain, had coronary stents placed about a year ago Pulmonary denies shortness of breath, denies coughing up blood Gastrointestinal as per HPI Neurological denies seizures Genitourinary denies blood in urine Hematological has been on aspirin, denies spontaneous/prolonged bleeding, Skin denies open non healing wounds Musculoskeletal no new changes Endocrine denies diabetes Psychological denies hallucinations Physical examination: Vital signs Temp 98.6F HR 103 BP 85/35 RR 18 Ht: 5'10 Wt: 270# BMI 38 General WD/WN WM in no apparent distress, alert and oriented, not septic appearing HEENT Normocephalic. EOM intact with sclera clear and no icterus noted. Neck is supple with no jugular venous distention noted. Trachea is midline. Lungs normal breath sounds No rales/rhonchi/wheezing noted. No labored breathing noted, such as retractions. No cough heard. Heart regular. Abdomen soft and benign and obese Extremities no pitting edema noted. Genitourinary/Rectal deferred Skin normal skin integrity. Neurological non focal. Psychological normal affect, patient is calm and appropriate Impression: upper GI bleed Discussion/Plan: I have discussed the above with the patient and his who is present with him. Will proceed with urgent EGD in the ED, with Dr. Berger providing MAC. I have explained the procedure to the patient. I have counseled the patient as to the risks of the procedure, including but not limited to: infection, bleeding, perforation of the GI tract, inability to stop bleeding, etc. - the patient understands. He agrees to proceed I have answered all questions to the patient?s satisfaction and the patient has no further questions.
[2020-05-14] MEDS: Propofol 200 MG/20 ML Vial IV BOLUS (20:56)
--- NOTE | 2020-05-14 21:08 | HP.PCM_ITS ---
History of Present Illness Date of Admission: 05/14/20 Chief Complaint: vomiting of blood The patient is a 45 year old M with a past medical history as outlined which includes CAD status post stents, hypertension and hyperlipidemia. He was admitted through the ED on 05/14/2020 with a complaint of vomiting blood. Patient was recently admitted in the hospital for chest pain and discharged on 05/12/2020 after he had an inconclusive stress test. He was offered a cardiac cath on Friday but patient preferred to go home and follow-up with cardiology on outpatient basis for cardiac cath subsequently. On discharge on 05/12/2020, patient states he went home and started vomiting blood around 6 PM on the day of discharge. He vomited blood once. Randolph lightheaded and dizzy. He did not vomit any blood again the next day. However on day of presentation, patient again started vomiting blood with associated clots. He had a still lightheadedness, dizziness and feeling weak so he decided to come to the hospital. He is never had such vomiting of blood before and denies any dark tarry stools though he admits to taking ibuprofen very frequently. Review of symptoms otherwise negative. Patient is currently not taking any aspirin or Plavix but states he took 1 Plavix just before he came to the hospital for chest pain about 4 days ago, and this was left over from when he had the stents put in. In the ED, vitals showed temperature of 98.7 Fahrenheit with blood pressure of 106/70, pulse rate of 107 and respiratory rate of 18. He was saturating at 99% on 2 L of oxygen. Chemistry showed sodium of 142 with potassium of 3.4 and bicarb of 20 with anion gap of 13. Creatinine was 1.19 and BUN over creatinine ratio was 25.2. CBC showed WBC of 18.3 with hemoglobin of 6.2 and platelets of 243. ITZ globin on 05/12/2020 was 13.5. KUB done of the stomach was unremarkable and he had an NG tube passed. Chest x-ray showed no acute cardiopulmonary process. 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 He has been admitted to be managed from acute anemia due to acute blood loss from upper GI bleed. [] Past Medical History Past Medical History (Chronic Problems): Chronic Problems Coronary artery disease (Chronic) Allergies No Known Allergies Allergy (Verified 05/14/20 18:25) Home Medications: Ambulatory Orders Medication Instructions Recorded Atorvastatin Calcium [Lipitor] 40 mg PO DAILY #30 tab 05/12/20 Metoprolol Tartrate 25 mg PO BID #60 tab 05/12/20 Nitroglycerin [Nitrostat] 0.4 mg SL UD #25 tab.subl 05/12/20 Surgical History: - - Angioplasty and cardiac stent placement 2017 Psychiatric History: No pertinent psych hx Lives: Spouse/ Significant Other Smoking Status: Never smoker Alcohol: None Drugs: None - *Family History Maternal History Items: No pertinent history Paternal History Items: No pertinent history Review of Systems Constitutional: Denies: Chills, Fever, Malaise, Weakness, Weight Change Eyes: Denies: Blurred vision HEENT: Denies: Head Aches, Sinus Congestion, Sinus Drainage Cardiovascular: Reports: Light Headedness, Palpitations. Denies: Chest Pain, Chest Pressure, Edema, Heaviness, Orthopnea, Syncope Respiratory: Denies: Cough, Shortness of breath at rest, Shortness of breath upon exertion, Sputum production Gastrointestinal: Reports: Hematemesis. Denies: Abdominal Pain, Hematochezia, Nausea, Vomiting Genitourinary: Denies: Dysuria Musculoskeletal: Denies: Joint Pain, Joint Tenderness Skin: Denies: Rash, Wounds Neurological: Denies: Numbness, Tingling, Focal weakness Psychiatric: Denies: Anxiety, Depression, Homicidal Ideations, Suicidal Ideations Hematologic/ Lymphatic: Denies: Easy Bruising, Easy Bleeding VTE Information - Inpt Only VTE Present on Admission: No VTE Mechan Device Prophylaxis: SCD's VTE Pharm Prophylaxis ordered?: No Reason prophylaxis not ordered:: Medical Contraindication - UGI bleed Patient Problems: Active and Suspected Problems Acute upper GI bleed (Acute) Hemorrhagic shock (Acute) Acute blood loss anemia (Acute) - Physical Exam Vitals/I&O's: Vital Signs Temp Pulse Resp BP Pulse Ox 98.3 F 110 H 18 121/68 H 99 05/14/20 20:41 05/14/20 20:51 05/14/20 20:51 05/14/20 20:51 05/14/20 20:51 Oxygen Delivery Method Room Air Weight: 270 lb Body Mass Index (BMI) 38.7 Intake and Output for Last 24 Hours 05/12/20 05/13/20 05/14/20 23:59 23:59 23:59 Intake Total 1035 / 1035 Balance 1035 / 1035 General: Alert, Oriented x3, Cooperative, No apparent distress HEENT: Atraumatic, PERRLA, EOMI, Normocephalic Oral: Dry Mucosa Neck: Supple, No JVD, Negative Carotid Bruits Lungs: Clear to auscultation, Normal air movement, No rhonchi, No wheeze, No rales Cardiovascular: Regular Rhythm, Normal S1, Normal S2, No murmurs, Tachycardic Abdomen: Bowel Sounds Present, Soft, Non Tender Extremities: No clubbing, No cyanosis, No edema, Capillary Refill Less than 3 Seconds Skin: No rashes, No breakdown Musculoskeletal: No Tenderness to Palpation of Joints or Extremities Lymphatic: No Cervical, Supraclavicular, or Inguinal Adenopathy Neurological: Cranial nerves II-XII grossly intact, Neuro grossly intact, Motor Exam 5/5 strength throughout Psych/Mental Status: Normal Affect, Appropriate, Alert and oriented to time, place, person, mood and affect Laboratory Results 05/14/20 18:30: WBC 18.3 H, RBC 1.91 L, Hgb 6.2 L, Hct 18.6 L, MCV 97.4 H, MCH 32.5 H, MCHC 33.3, RDW Std Deviation 42.8, RDW Coeff of Colby 12.6, Plt Count 243, MPV 10.4, Immature Gran % (Auto) 3.700 H, Neut % (Auto) 52.3, Lymph % (Auto) 35.7, Taylor % (Auto) 7.0, Eos % (Auto) 0.9, Baso % (Auto) 0.4, Absolute Neuts (auto) 9.6 H, Absolute Lymphs (auto) 6.55 H, Nucleated RBC % 1.0, Differential Comment SCANNED, Polychromasia RARE 05/14/20 18:30: Sodium 142, Potassium 3.4 L, Chloride 109 H, Carbon Dioxide 20.0 L, Anion Gap 13, BUN 30 H, Creatinine 1.19, Estim Creat Clear Calc 82.64, Est GFR (MDRD) Af Amer 86, Est GFR (MDRD) Non-Af 71, BUN/Creatinine Ratio 25.2 H, Glucose 190 H, Calcium 7.7 L, Troponin I 0.024 05/14/20 18:30: Blood Type O POSITIVE, Antibody Screen NEGATIVE 05/14/20 18:30: Crossmatch See Detail Diagnostic Data Chest X-Ray 05/14/20 18:35 IMPRESSION: Normal x-ray examination of the chest. Electronically Signed: Deb Montoya MD at 20:12 EDT Tel , Service support , KUB X-Ray 05/14/20 19:40 IMPRESSION: NG tube terminates in the stomach. Electronically Signed: Deb Montoya MD at 20:14 EDT Tel , Service support , Current Medications Pantoprazole Sodium 80 mg/ (Sodium Chloride) 100 mls @ 10 mls/hr CONT INF Q10H ARIA Stop: 05/15/20 07:04 Assessment/Plan All Active Problems Atypical chest pain (Acute) Dyspnea (Acute) Acute upper GI bleed (Acute) Hemorrhagic shock (Acute) Acute blood loss anemia (Acute) 45 y/o admitted with a complaint of vomiting blood 1. 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 history of CAD s/p stents * Was just admitted and discharged on 05/12/2020 for chest pain. He had an inconclusive stress test and was offered a cardiac cath on Friday. However he preferred to go home and follow-up with cardiology on outpatient basis. * Initial troponin was 0.024 today. He has no cardiac symptoms. * Will monitor. Continue statin and metoprolol. No aspirin and Plavix on account of GI bleed. * 4. Hyperlipidemia: On statin. 5. Hypertension: Metoprolol. DVT prophylaxis: SCDs. No anticoagulation on account of GI bleed. CODE STATUS: Full code * Patient counseled extensively about different types of CODE STATUS including full code, DNR CCA and DNR CCA. Patient elects to be full code. * Total [id number] time 17 minutes. * Total critical care time spent: 45 mins Inpatient E&M: 58531 Init Hosp L3 Procedures: 68623 Critial Care 1st Hr - advanced care plan first 30 [id number]
--- NOTE | 2020-05-14 21:17 | OP.CCLET_ITS ---
05/14/2020 [facility] Re : Upper GI endoscopy procedure for Sridhar Crouch This procedure was performed on Thursday, May 14, 2020. My impressions and recommendations are as follows: Impressions : - Irritation of mucosa of first portion of the duodenum - very localized and normal second portion of the duodenum. - Hematin (altered blood/amaktw-fjdviz-obgg material) in the entire stomach. 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 - Z-line irregular with irritation - esophagitis. - No specimens collected. Recommendations : - Return patient to ICU for ongoing care. - Continue present medications. My findings are described in the full procedure note, which is enclosed. If I can be of further assistance, please feel free to contact me at Doctor phone number(s): , Work: . Sincerely, MD Isamar Malagon MD 05/14/2020 9:16:23 PM This report has been signed electronically.
--- NOTE | 2020-05-14 21:17 | OP.EGD_ITS ---
Patient Name: Sridhar Lozada Procedure Date: 05/14/2020 8:51 PM Date of : 1975 Age: 45 Procedure: Upper GI endoscopy Indications: Epigastric abdominal pain, Acute post hemorrhagic anemia Providers: Isamar Meraz MD Medicines: See the Anesthesia note for documentation of the administered medications - anesthesia provider by ED physician - Dr. Berger Patient Profile: Refer to note in patient chart for documentation of history and physical. Complications: No immediate complications. Procedure: Pre-Anesthesia Assessment: - see anesthesia note After obtaining informed consent, the endoscope was passed under direct vision. Throughout the procedure, the patient's blood pressure, pulse, and oxygen saturations were monitored continuously. The gastroscope was introduced through the mouth, and advanced to the second part of duodenum. The upper GI endoscopy was accomplished without difficulty. The patient tolerated the procedure well. Scope In: 8:57:01 PM Scope Out: 9:03:50 PM Total Procedure Duration Time 0 hours 6 minutes 49 seconds Findings: Hematin (altered blood/fnpuhf-cljzba-elnm material) was found in the entire examined stomach and some in the duodenal bulb. 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 The Z-line was irregular with signs of irritation/inflammation but no active bleeding. Localized mildly erythematous mucosa without active bleeding and with no stigmata of bleeding was found in the duodenal bulb. Impression: - Irritation of mucosa of first portion of the duodenum - very localized and normal second portion of the duodenum. - Hematin (altered blood/tjvewe-msxbrw-obnq material) in the entire stomach. 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 - Z-line irregular with irritation - esophagitis. - No specimens collected. Recommendation: - Return patient to ICU for ongoing care. - Continue present medications. Procedure Code(s): --- Professional --- 40906, Esophagogastroduodenoscopy, flexible, transoral; diagnostic, including collection of specimen(s) by brushing or washing, when performed (separate procedure) Diagnosis Code(s): --- Professional --- K92.2, Gastrointestinal hemorrhage, unspecified K31.819, Angiodysplasia of stomach and duodenum without bleeding K22.8, Other specified diseases of esophagus R10.13, Epigastric pain D62, Acute posthemorrhagic anemia CPT copyright 2017 [employer]. All rights reserved. The codes documented in this report are preliminary and upon branch chief review may be revised to meet current compliance requirements. MD Isamar Malagon MD 05/14/2020 9:16:23 PM This report has been signed electronically. Number of Addenda: 0 Note Initiated On: 05/14/2020 8:51 PM
--- NOTE | 2020-05-14 22:12 | SUR.OPER ---
DR. KANG ADMINISTERED PROPOFOL. ED RN IN ROOM DOCUMENTING CASE.
[2020-05-14] MEDS: 0.9% Normal Saline 1,000 ML 150 ML IV (23:45)
[2020-05-14] MEDS: Acetaminophen 325 MG Tablet 650 MG PO (23:52)
[2020-05-15] VITALS (36 sets, daily range): BP systolic 99–140; BP diastolic 46–78; PULSE 95–120; RESP 6–25; TEMP 36.6–38.1; O2SAT 95–99
[2020-05-15 05:19] LABS: Absolute Lymphocyte Count 2.42 X10^3/uL (0.83-4.51); Basophil# 0.05 X10^3/uL; Basophil% 0.3 % (0-1); Eosinophil# 0.02 X10^3/uL; Eosinophils% 0.1 % (0-5); Hematocrit 21.4 % (40-54); Hemoglobin 7.1 g/dL (13.0-16.5); Lymphocyte # 2.42 X10^3/ul (4.0); Lymphocyte % 16.6 % (19-41); Mean Corp Hgb Conc 33.2 g/dL (32-36); Mean Corpuscular Hgb 31.8 pg (27.0-32.0); Mean Platelet Vol. 10.4 fl (6.2-12.0); Monocyte# 0.88 X10^3/uL; NRBC Flagged by Analyzer 0.7 % (0-5); Neutrophil % 75.8 % (47-70); Platelet Count 161 K/mm3 (150-450); RBC Distribution Width CV 14.2 % (11.6-14.6); RBC Distribution Width SD 47.8 fl (35.1-43.9); Red Blood Count 2.23 M/mm3 (4.6-6.2); White Blood Count 14.6 K/mm3 (4.4-11.0)
[2020-05-15 05:31] LABS: Anion Gap 4 (5-15); BUN 21 mg/dL (7-18); BUN/Creat Ratio 21.1 RATIO (10-20); Calcium,Total 7.2 mg/dL (8.5-10.1); Chloride 110 mmol/L (98-107); EST Glomerular Filtration Rate 87 mL/min (>60); Est Glom Filt Rate - Afr Amer 105 mL/min (>60); Estimated Creatinine Clearance 98.35 ml/min; Glucose 117 mg/dL (74-106); Potassium 4.2 mmol/L (3.5-5.1); Sodium Level 139 mmol/L (136-145)
[2020-05-15] MEDS: Acetaminophen 325 MG Tablet 650 MG PO (06:12)
[2020-05-15] MEDS: 0.9% Saline Lock 10 ML Syringe IV (06:52)
--- NOTE | 2020-05-15 09:20 | PCM.PN.HOSP ---
Patient Problems: Active and Suspected Problems Acute upper GI bleed (Acute) Hemorrhagic shock (Acute) Acute blood loss anemia (Acute) Subjective: Feeling better, no issues overnight he had his EGD and is being transfused 3 units of PRBCs Vitals/I&O's: Vital Signs Temp Pulse Resp BP Pulse Ox 98.3 F 106 H 14 121/60 H 98 05/15/20 08:05 05/15/20 08:05 05/15/20 08:05 05/15/20 08:05 05/15/20 08:05 Oxygen Flow Rate (L/min) [6] 4 Oxygen Flow Rate (L/min) [4] 4 Oxygen Flow Rate (L/min) [1 ( 4 Initial Baseline)] Oxygen Flow Rate (L/min) 2 Oxygen Delivery Method [6] Nasal Cannula Oxygen Delivery Method [4] Nasal Cannula Oxygen Delivery Method [1 ( Nasal Cannula Initial Baseline)] Oxygen Delivery Method Room Air Weight: 282 lb 9.6 oz Body Mass Index (BMI) 40.5 Intake and Output for Last 24 Hours 05/13/20 05/14/20 05/15/20 23:59 23:59 23:59 Intake Total 2435 / 2435 1153.67 / 1153.67 Output Total 900 / 900 Balance 2435 / 2435 253.67 / 253.67 General: Alert, Oriented x3, Cooperative, No apparent distress, - - A little pale HEENT: Atraumatic, PERRLA, EOMI, Normocephalic Oral: Moist Mucosa Neck: Supple, No JVD Lungs: Clear to auscultation, Normal air movement, No rhonchi, No wheeze, No rales Cardiovascular: Regular rate, Regular Rhythm, Normal S1, Normal S2, No murmurs Abdomen: Soft, Non Tender, Non-Distended, No Hepato-splenomegaly Extremities: No edema, Capillary Refill Less than 3 Seconds Skin: No rashes, No breakdown Neurological: Neuro grossly intact, Sensory exam intact to light touch and pain Psych/Mental Status: Normal Affect, Appropriate Laboratory Results 05/14/20 18:30: WBC 18.3 H, RBC 1.91 L, Hgb 6.2 L, Hct 18.6 L, MCV 97.4 H, MCH 32.5 H, MCHC 33.3, RDW Std Deviation 42.8, RDW Coeff of Colby 12.6, Plt Count 243, MPV 10.4, Immature Gran % (Auto) 3.700 H, Neut % (Auto) 52.3, Lymph % (Auto) 35.7, Door % (Auto) 7.0, Eos % (Auto) 0.9, Baso % (Auto) 0.4, Absolute Neuts (auto) 9.6 H, Absolute Lymphs (auto) 6.55 H, Nucleated RBC % 1.0, Differential Comment SCANNED, Polychromasia RARE 05/14/20 18:30: Sodium 142, Potassium 3.4 L, Chloride 109 H, Carbon Dioxide 20.0 L, Anion Gap 13, BUN 30 H, Creatinine 1.19, Estim Creat Clear Calc 82.64, Est GFR (MDRD) Af Amer 86, Est GFR (MDRD) Non-Af 71, BUN/Creatinine Ratio 25.2 H, Glucose 190 H, Calcium 7.7 L, Troponin I 0.024 05/14/20 18:30: Blood Type O POSITIVE, Antibody Screen NEGATIVE 05/14/20 18:30: Crossmatch See Detail 05/14/20 18:30: Crossmatch See Detail 05/14/20 18:30: Crossmatch See Detail 05/15/20 05:10: WBC 14.6 H, RBC 2.23 L, Hgb 7.1 L, Hct 21.4 L, MCV 96.0 H, MCH 31.8, MCHC 33.2, RDW Std Deviation 47.8 H, RDW Coeff of Colby 14.2, Plt Count 161, MPV 10.4, Immature Gran % (Auto) 1.200 H, Neut % (Auto) 75.8 H, Lymph % (Auto) 16.6 L, Door % (Auto) 6.0, Eos % (Auto) 0.1, Baso % (Auto) 0.3, Absolute Neuts (auto) 11.0 H, Absolute Lymphs (auto) 2.42, Nucleated RBC % 0.7 05/15/20 05:10: Sodium 139, Potassium 4.2, Chloride 110 H, Carbon Dioxide 25.0, Anion Gap 4 L, BUN 21 H, Creatinine 1.00, Estim Creat Clear Calc 98.35, Est GFR (MDRD) Af Amer 105, Est GFR (MDRD) Non-Af 87, BUN/Creatinine Ratio 21.1 H, Glucose 117 H, Calcium 7.2 L Current Medications Acetaminophen (Tylenol) 650 mg PO Q4H PRN PRN PRN Reason: HEADACHE/FEVER (T>100F) Last Admin: 05/15/20 06:12 Dose: 650 mg Documented by: Atorvastatin Calcium (Lipitor) 40 mg PO DAILY@2200 [facility] Sodium Chloride () 1,000 mls @ 150 mls/hr IV .[id number] ARI[facility] Stop: 05/15/20 12:04 Last Infusion: 05/15/20 06:51 Dose: 0 mls/hr Documented by: Sodium Chloride () 250 mls @ 15 mls/hr IV .[id number] PRN PRN Reason: Saline Flush Sodium Chloride () 250 mls @ 15 mls/hr IV .[id number] PRN PRN Reason: Additional IVPB Infusion Pantoprazole Sodium 80 mg/ (Sodium Chloride) 100 mls @ 10 mls/hr CONT INF Q10H [facility] Last Admin: 05/15/20 05:59 Dose: 10 mls/hr Documented by: Nitroglycerin (Nitrostat) 0.4 mg SUBLINGUAL Q5M PRN PRN Reason: CARDIAC/CHEST PAIN Ondansetron HCl (Zofran) 4 mg IV Q8H PRN PRN PRN Reason: NAUSEA/VOMITING Sodium Chloride () 10 - 40 ml IV UD PRN PRN Reason: SALINE FLUSH Last Admin: 05/15/20 06:52 Dose: 10 ml Documented by: STROKE Vital Signs/Narrative: Vital Signs Temp Pulse Resp BP BP Pulse Ox 05/15/20 08:05 98.3 F 106 H 14 121/60 H 98 05/15/20 07:52 114 H 6 L 101/61 99 05/15/20 07:51 114 H 05/15/20 07:05 98.8 F 104 H 18 101/61 96 05/15/20 06:00 99.8 F H 109 H 18 99/55 L 99 Medical Necessity - Tobacco Use Smoking Status: Never smoker Assessment/Plan All Active Problems Atypical chest pain (Acute) Dyspnea (Acute) Acute upper GI bleed (Acute) Hemorrhagic shock (Acute) Acute blood loss anemia (Acute) 1. 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 pylori testing -Continue with IV Protonix -He is supposed to be on aspirin, Plavix for his previous stents and he does take Advil at least twice a week about 800 mg each time -We will continue with transfusions and monitor his hemoglobin. Plan to transfer out of the ICU to PCU later this afternoon 2. CAD status post stents/HTN/HLD -He said that he had stopped taking his aspirin and Plavix for his stent however when he was having some headaches and some right chest pain he took his metoprolol as well as both his aspirin and his Plavix and then he had a GI bleed -Blood pressure is stable, heart rate is elevated secondary to his anemia -We will hold his blood pressure medication, continue with his Lipitor -Stents were placed in 2016 therefore will hold off of aspirin and Plavix until he follows up with cardiology DVT: SCDs Inpatient E&M: 75020 Subs Hosp L2
[2020-05-15] MEDS: 0.9% Normal Saline 1,000 ML 100 ML IV (11:30)
--- NOTE | 2020-05-15 13:22 | CASEMGMT ---
Addendum entered by Britta Hill 05/15/20 13:28: Pt confirms that he has spoken to [facility] and is aware to call [facility] with any questions regarding hospital bill. Original Note: Social Work Note Pt is listed as self-pay. SW in to speak with pt. SW introduced self and role at [facility]. Pt is alert and orientated x3. Pt confirms that he has no insurance, states his job doesn't offer it. SW spoke with pt regarding Medicaid. Pt states he has applied for Medicaid before and makes too much for it. SW educated pt on [facility], [facility], people to people, RX assistance programs. Pt agreeable to taking resources. SW provided resources. Pt states that he makes good money, his significant other makes good money, and he has no financial concerns at this time. Britta Hill SCIENTIFIC LABORATORY SUPERVISOR, SPEECH COACH
--- NOTE | 2020-05-15 14:25 | CASEMGMT ---
RN CM Assessment Note Intro role of CM to patient in room. Patient is awake, alert and able to participate in assessment. Pt states he is independent, no care needs and no DME use. Presentation: hemataemesis, lightheaded,.melanotic stool Diagnosis: UGIB PCP: ABLERT Crouch ([place]) Insurance: Self Pay- referral made. Preferred Pharmacy: [facility] [place], [place] Prescription Benefit: no. If patient needs assistance with prescriptions, can consider [facility] assistance. LNOK: Violette Stephenson Living Arrangements: Lives independently. No care needs prior to admission. Tranportation: drives DME: None Patient DC Goals: Home DC Plan: Anticipate home on discharge. No needs identified. CM let patient know to contact cm if dc conerns arise. Savita VELARDEN RN ACM
[2020-05-15 15:14] LABS: Hematocrit 21.9 % (40-54); Hemoglobin 7.5 g/dL (13.0-16.5)
[2020-05-15 20:24] LABS: Hematocrit 21.7 % (40-54); Hemoglobin 7.2 g/dL (13.0-16.5)
[2020-05-16] VITALS (31 sets, daily range): BP systolic 111–172; BP diastolic 49–85; PULSE 76–113; RESP 11–25; TEMP 36.6–37.8; O2SAT 96–99
[2020-05-16 05:06] LABS: Absolute Lymphocyte Count 2.29 X10^3/uL (0.83-4.51); Absolute Neutrophil Count 5.8 X10^3/uL (2.0-7.7); Basophil# 0.04 X10^3/uL; Basophil% 0.4 % (0-1); Eosinophil# 0.16 X10^3/uL; Eosinophils% 1.8 % (0-5); Hematocrit 21.2 % (40-54); Hemoglobin 7.1 g/dL (13.0-16.5); Lymphocyte # 2.29 X10^3/ul (4.0); Lymphocyte % 25.4 % (19-41); Mean Corp Hgb Conc 33.5 g/dL (32-36); Mean Corpuscular Hgb 31.8 pg (27.0-32.0); Mean Corpuscular Volume 95.1 fL (80-94); Mean Platelet Vol. 10.1 fl (6.2-12.0); Monocyte# 0.56 X10^3/uL; Monocyte% 6.2 % (0-10); NRBC Flagged by Analyzer 0.9 % (0-5); Neutrophil # 5.79 X10^3/uL (2.7-7.7); Neutrophil % 64.2 % (47-70); Platelet Count 166 K/mm3 (150-450); RBC Distribution Width CV 15.1 % (11.6-14.6); RBC Distribution Width SD 49.9 fl (35.1-43.9); Red Blood Count 2.23 M/mm3 (4.6-6.2)
--- NOTE | 2020-05-16 10:07 | PCM.PN.HOSP ---
Patient Problems: Active and Suspected Problems Acute upper GI bleed (Acute) Hemorrhagic shock (Acute) Acute blood loss anemia (Acute) Subjective: No issues overnight, he did not sleep very well but otherwise states that he feels little bit better Vitals/I&O's: Vital Signs Temp Pulse Resp BP Pulse Ox 99.1 F 89 20 H 133/68 H 98 05/16/20 06:00 05/16/20 07:49 05/16/20 07:00 05/16/20 07:00 05/16/20 08:19 Oxygen Flow Rate (L/min) [6] 4 Oxygen Flow Rate (L/min) [4] 4 Oxygen Flow Rate (L/min) [1 ( 4 Initial Baseline)] Oxygen Flow Rate (L/min) 2 Oxygen Delivery Method [6] Nasal Cannula Oxygen Delivery Method [4] Nasal Cannula Oxygen Delivery Method [1 ( Nasal Cannula Initial Baseline)] Oxygen Delivery Method Room Air Weight: 282 lb Body Mass Index (BMI) 40.5 Intake and Output for Last 24 Hours 05/14/20 05/15/20 05/16/20 23:59 23:59 23:59 Intake Total 2435 / 2435 2401.17 / 2401.17 100 / 100 Output Total 1999 1340 / 1340 Balance 2435 / 2435 401.17 / 401.17 -1240 / -1240 General: Alert, Oriented x3, Cooperative, No apparent distress, - - A little pale HEENT: Atraumatic, PERRLA, EOMI, Normocephalic Oral: Moist Mucosa Neck: Supple, No JVD Lungs: Clear to auscultation, Normal air movement, No rhonchi, No wheeze, No rales Cardiovascular: Regular rate, Regular Rhythm, Normal S1, Normal S2, No murmurs Abdomen: Soft, Non Tender, Non-Distended, No Hepato-splenomegaly Extremities: No edema, Capillary Refill Less than 3 Seconds Skin: No rashes, No breakdown Neurological: Neuro grossly intact, Sensory exam intact to light touch and pain Psych/Mental Status: Normal Affect, Appropriate Laboratory Results 05/14/20 18:30: Crossmatch See Detail 05/15/20 15:00: Hgb 7.5 L, Hct 21.9 L 05/15/20 20:00: Hgb 7.2 L, Hct 21.7 L 05/16/20 05:00: WBC 9.0, RBC 2.23 L, Hgb 7.1 L, Hct 21.2 L, MCV 95.1 H, MCH 31.8, MCHC 33.5, RDW Std Deviation 49.9 H, RDW Coeff of Colby 15.1 H, Plt Count 166, MPV 10.1, Immature Gran % (Auto) 2.000 H, Neut % (Auto) 64.2, Lymph % (Auto) 25.4, Pierce % (Auto) 6.2, Eos % (Auto) 1.8, Baso % (Auto) 0.4, Absolute Neuts (auto) 5.8, Absolute Lymphs (auto) 2.29, Nucleated RBC % 0.9 Current Medications Acetaminophen (Tylenol) 650 mg PO Q4H PRN PRN PRN Reason: HEADACHE/FEVER (T>100F) Last Admin: 05/15/20 06:12 Dose: 650 mg Documented by: Atorvastatin Calcium (Lipitor) 40 mg PO DAILY@2200 [facility] Last Admin: 05/15/20 22:00 Dose: Not Given Documented by: Sodium Chloride () 250 mls @ 15 mls/hr IV .[id number] PRN PRN Reason: Saline Flush Sodium Chloride () 250 mls @ 15 mls/hr IV .[id number] PRN PRN Reason: Additional IVPB Infusion Pantoprazole Sodium 80 mg/ (Sodium Chloride) 100 mls @ 10 mls/hr CONT INF Q10H [facility] Last Admin: 05/16/20 02:41 Dose: 10 mls/hr Documented by: Nitroglycerin (Nitrostat) 0.4 mg SUBLINGUAL Q5M PRN PRN Reason: CARDIAC/CHEST PAIN Ondansetron HCl (Zofran) 4 mg IV Q8H PRN PRN PRN Reason: NAUSEA/VOMITING Sodium Chloride () 10 - 40 ml IV UD PRN PRN Reason: SALINE FLUSH Last Admin: 05/15/20 06:52 Dose: 10 ml Documented by: STROKE Vital Signs/Narrative: Vital Signs Pulse Resp BP Pulse Ox 05/16/20 08:19 98 05/16/20 07:49 89 05/16/20 07:00 98 20 H 133/68 H 99 Medical Necessity - Tobacco Use Smoking Status: Never smoker Assessment/Plan All Active Problems Atypical chest pain (Acute) Dyspnea (Acute) Acute upper GI bleed (Acute) Hemorrhagic shock (Acute) Acute blood loss anemia (Acute) 1. 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 pylori testing -Continue with IV Protonix -He is supposed to be on aspirin, Plavix for his previous stents and he does take Advil at least twice a week about 800 mg each time -He presented his hemoglobin was 6.2 and he received 3 units of blood only corrected to 7.5 therefore he was maintained in the ICU and a repeat hemoglobin this morning was 7.1 therefore he will be transfused another 2 units with a repeat this afternoon. Plan to transfer out of the ICU to PCU later this afternoon 2. CAD status post stents/HTN/HLD -He said that he had stopped taking his aspirin and Plavix for his stent however when he was having some headaches and some right chest pain he took his metoprolol as well as both his aspirin and his Plavix and then he had a GI bleed -Blood pressure is stable, heart rate is elevated secondary to his anemia -We will hold his blood pressure medication, continue with his Lipitor -Stents were placed in 2017 therefore will hold off of aspirin and Plavix until he follows up with cardiology DVT: SCDs Inpatient E&M: [id number] Subs Hosp L2
[2020-05-16 19:52] LABS: Hematocrit 28.5 % (40-54); Hemoglobin 9.7 g/dL (13.0-16.5)
[2020-05-16] MEDS: Atorvastatin Calcium 40 MG Tablet PO (21:04)
[2020-05-17 02:21] VITALS: BP 144/71; PULSE 89; RESP 17; TEMP 36.9; O2SAT 99
[2020-05-17 03:17] VITALS: PULSE 82
[2020-05-17 06:34] LABS: Absolute Neutrophil Count 5.5 X10^3/uL (2.0-7.7); Basophil# 0.05 X10^3/uL; Basophil% 0.5 % (0-1); Eosinophil# 0.22 X10^3/uL; Eosinophils% 2.3 % (0-5); Hemoglobin 9.4 g/dL (13.0-16.5); Lymphocyte % 27.4 % (19-41); Mean Corp Hgb Conc 33.6 g/dL (32-36); Mean Corpuscular Hgb 31.6 pg (27.0-32.0); Mean Corpuscular Volume 94.3 fL (80-94); Mean Platelet Vol. 9.8 fl (6.2-12.0); Monocyte# 0.65 X10^3/uL; Monocyte% 6.8 % (0-10); NRBC Flagged by Analyzer 0.9 % (0-5); Neutrophil # 5.53 X10^3/uL (2.7-7.7); Neutrophil % 58.4 % (47-70); Platelet Count 192 K/mm3 (150-450); RBC Distribution Width CV 16.3 % (11.6-14.6); RBC Distribution Width SD 49.5 fl (35.1-43.9); Red Blood Count 2.97 M/mm3 (4.6-6.2); White Blood Count 9.5 K/mm3 (4.4-11.0)
[2020-05-17 08:00] VITALS: PULSE 80
[2020-05-17 08:21] VITALS: BP 128/81; PULSE 68; RESP 18; TEMP 36.4; O2SAT 98
[2020-05-17] MEDS: 0.9% Saline Lock 10 ML Syringe IV (11:13)
[2020-05-17 12:00] VITALS: PULSE 92
[2020-05-17 12:51] LABS: Hematocrit 29.9 % (40-54); Hemoglobin 10.2 g/dL (13.0-16.5)
--- NOTE | 2020-05-17 13:27 | DCINST_ITS ---
- Discharge Diagnoses Current Active Problems: Current Active and Chronic Problems Acute upper GI bleed (Acute) Hemorrhagic shock (Acute) Acute blood loss anemia (Acute) You will use the following diet at home:: Cardiac Your food should be the consistency of: Regular Your liquids should be the consistency of: Regular/Thin Discharge Activity: Return to Normal Activity Call your doctor if you observe: Fever of 101 or Higher, Shortness of breath, Dizziness, Fainting spells, Swelling in the ankles, Chest pain, Increased palpitations (irregular heartbeat) Allergies/Adverse Reactions: Allergies No Known Allergies Allergy (Verified 05/14/20 18:25) Medications to take at Discharge Atorvastatin Calcium [Lipitor] 40 mg PO DAILY #30 tab 05/12/20 Metoprolol Tartrate 25 mg PO BID #60 tab 05/12/20 Nitroglycerin [Nitrostat] 0.4 mg SL UD #25 tab.subl 05/12/20 Primary Care Physician: Kristyn Crouch PA-C [Primary Care Provider] - Please follow up with your Primary Care Physician in: 3-5 days Test Results: Test results from this visit will be discussed in further detail at your follow- up appointment, if applicable. Please Follow Up With: Dom Blackwood MD When: 1-2 weeks
--- NOTE | 2020-05-17 13:29 | DS.PCM_ITS ---
Discharge Date and Diagnosis - Problem List Patient Problems: Active and Suspected Problems Acute upper GI bleed (Acute) Hemorrhagic shock (Acute) Acute blood loss anemia (Acute) Date of Admission: 05/14/20 Date of Discharge: 05/17/20 - Primary Discharge Diagnosis Acute Problems: Active Problems Acute upper GI bleed (Acute) Hemorrhagic shock (Acute) Acute blood loss anemia (Acute) - Secondary Discharge Diagnosis Chronic Problems: Chronic Problems Coronary artery disease (Chronic) Hospital Course and Treatment Imaging Results: Clinical Impression(s) from Imaging Studies Chest X-Ray 05/14/20 18:35 IMPRESSION: Normal x-ray examination of the chest. Electronically Signed: Deb Montoya MD at 20:12 EDT Tel , Service support , KUB X-Ray 05/14/20 19:40 IMPRESSION: NG tube terminates in the stomach. Electronically Signed: Deb Montoya MD at 20:14 EDT Tel , Service support , Operations: None Procedures: EGD Summary of Care Provided: per HPI: The patient is a 45 year old M with a past medical history as outlined which includes CAD status post stents, hypertension and hyperlipidemia. He was admitted through the ED on 05/14/2020 with a complaint of vomiting blood. Patient was recently admitted in the hospital for chest pain and discharged on 05/12/2020 after he had an inconclusive stress test. He was offered a cardiac cath on Friday but patient preferred to go home and follow-up with cardiology on outpatient basis for cardiac cath subsequently. On discharge on 05/12/2020, patient states he went home and started vomiting blood around 6 PM on the day of discharge. He vomited blood once. [place] lightheaded and dizzy. He did not vomit any blood again the next day. However on day of presentation, patient again started vomiting blood with associated clots. He had a still lightheadedness, dizziness and feeling weak so he decided to come to the hospital. He is never had such vomiting of blood before and denies any dark tarry stools though he admits to taking ibuprofen very frequently. Review of symptoms otherwise negative. Patient is currently not taking any aspirin or Plavix but states he took 1 Plavix just before he came to the hospital for chest pain about 4 days ago, and this was left over from when he had the stents put in. In the ED, vitals showed temperature of 98.7 Fahrenheit with blood pressure of 106/70, pulse rate of 107 and respiratory rate of 18. He was saturating at 99% on 2 L of oxygen. Chemistry showed sodium of 142 with potassium of 3.4 and bicarb of 20 with anion gap of 13. Creatinine was 1.19 and BUN over creatinine ratio was 25.2. CBC showed WBC of 18.3 with hemoglobin of 6.2 and platelets of 243. ITZ globin on 05/12/2020 was 13.5. KUB done of the stomach was unremarkable and he had an NG tube passed. Chest x-ray showed no acute cardiopulmonary process. 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 He has been admitted to be managed from acute anemia due to acute blood loss from upper GI bleed. Hospital Course: 1. Acute upper GI [id number] male with a history of stents in 2017 presented to the hospital initially with chest pain and had an indeterminant stress test. He did not want to stay in the hospital until cardiac cath so he went home however that night he had an episode of of bloody emesis, he stayed home in the next day he had another episode where he passed out. At that point he was brought to the hospital and underwent emergent EGD which found 2 areas did not have active bleeding but did have clots. He was transfused 3 units and initially did not correct appropriately. His initial hemoglobin was 6.2 and he went up to 7.5, indicating that his hemoglobin was likely a lot lower than the 6.2. He received another 2 units of packed red blood cells the day before d ischarge, his hemoglobin had trended down to 7.1 that morning therefore he was given 2 units and then rechecked at around 8 PM last night and was found to be 9.5 and he went down to 9.1 this morning however rechecked this afternoon showed a hemoglobin of 10.2. He is stable for just discharge at this time and he will follow-up with cardiology as well as his primary care doctor. At this time his aspirin and Plavix will be discontinued since his stents were in 2017, but he will continue his metoprolol and his Lipitor. He will be discharged on Protonix 40 mg p.o. twice daily and can follow-up with the surgeon as necessary otherwise he can decrease his Protonix dosing to daily in about 3 to 4 weeks. I did discuss the plan for discharge with him and his and they both expressed understanding of the risks and benefits of discharge today. 2. CAD status post stents, hypertension, hyperlipidemia, and morbid obesity are all chronic illnesses that complicate his care and his home meds were continued where appropriate Patient Problems: Active and Suspected Problems Acute upper GI bleed (Acute) Hemorrhagic shock (Acute) Acute blood loss anemia (Acute) - Physical Exam Vitals/I&O's: Vital Signs Temp Pulse Resp BP Pulse Ox 97.5 F L 68 18 128/81 H 98 05/17/20 08:21 05/17/20 08:21 05/17/20 08:21 05/17/20 08:21 05/17/20 08:21 Oxygen Flow Rate (L/min) [6] 4 Oxygen Flow Rate (L/min) [4] 4 Oxygen Flow Rate (L/min) [1 ( 4 Initial Baseline)] Oxygen Flow Rate (L/min) 2 Oxygen Delivery Method [6] Nasal Cannula Oxygen Delivery Method [4] Nasal Cannula Oxygen Delivery Method [1 ( Nasal Cannula Initial Baseline)] Oxygen Delivery Method Room Air Weight: 282 lb 13.649 oz Body Mass Index (BMI) 40.5 Intake and Output for Last 24 Hours 05/15/20 05/16/20 05/17/20 23:59 23:59 23:59 Intake Total 2401.17 / 2401.17 989 / 1109 1250 / 1250 Output Total 1999 3140 / 3140 Balance 401.17 / 401.17 -215 / -2030 1250 / 1250 General: Alert, Oriented x3, Cooperative, No apparent distress HEENT: Atraumatic, PERRLA, EOMI, Normocephalic Oral: Moist Mucosa Neck: Supple, No JVD Lungs: Clear to auscultation, Normal air movement, No rhonchi, No wheeze, No rales Cardiovascular: Regular rate, Regular Rhythm, Normal S1, Normal S2, No murmurs Abdomen: Soft, Non Tender, Non-Distended, No Hepato-splenomegaly Extremities: No edema, Capillary Refill Less than 3 Seconds Skin: No rashes, No breakdown Neurological: Neuro grossly intact, Sensory exam intact to light touch and pain Psych/Mental Status: Normal Affect, Appropriate Laboratory Results 05/14/20 18:30: Crossmatch See Detail 05/16/20 19:45: Hgb 9.7 L, Hct 28.5 L 05/17/20 06:10: WBC 9.5, RBC 2.97 L, Hgb 9.4 L, Hct 28.0 L, MCV 94.3 H, MCH 31.6, MCHC 33.6, RDW Std Deviation 49.5 H, RDW Coeff of Colby 16.3 H, Plt Count 192, MPV 9.8, Immature Gran % (Auto) 4.600 H, Neut % (Auto) 58.4, Lymph % (Auto) 27.4, [place] % (Auto) 6.8, Eos % (Auto) 2.3, Baso % (Auto) 0.5, Absolute Neuts (auto) 5.5, Absolute Lymphs (auto) 2.60, Nucleated RBC % 0.9 05/17/20 12:40: Hgb 10.2 L, Hct 29.9 L Current Medications Acetaminophen (Tylenol) 650 mg PO Q4H PRN PRN PRN Reason: HEADACHE/FEVER (T>100F) Last Admin: 05/15/20 06:12 Dose: 650 mg Documented by: Atorvastatin Calcium (Lipitor) 40 mg PO DAILY@2200 [facility] Last Admin: 05/16/20 21:04 Dose: 40 mg Documented by: Sodium Chloride () 250 mls @ 15 mls/hr IV .[id number] PRN PRN Reason: Saline Flush Last Infusion: 05/16/20 23:00 Dose: 0 mls/hr Documented by: Sodium Chloride () 250 mls @ 15 mls/hr IV .[id number] PRN PRN Reason: Additional IVPB Infusion Pantoprazole Sodium 40 mg/ (Sodium Chloride) 110 mls @ 330 mls/hr IV Q12 [facility] Last Infusion: 05/17/20 11:35 Dose: Infused Documented by: Nitroglycerin (Nitrostat) 0.4 mg SUBLINGUAL Q5M PRN PRN Reason: CARDIAC/CHEST PAIN Ondansetron HCl (Zofran) 4 mg IV Q8H PRN PRN PRN Reason: NAUSEA/VOMITING Sodium Chloride () 10 - 40 ml IV UD PRN PRN Reason: SALINE FLUSH Last Admin: 05/17/20 11:13 Dose: 10 ml Documented by: Discharge Activity: Return to Normal Activity Call your doctor if you observe: Fever of 101 or Higher, Shortness of breath, Dizziness, Fainting spells, Swelling in the ankles, Chest pain, Increased palpitations (irregular heartbeat) Home Medications: Medications to take at Discharge Atorvastatin Calcium [Lipitor] 40 mg PO DAILY #30 tab 05/12/20 Metoprolol Tartrate 25 mg PO BID #60 tab 05/12/20 Nitroglycerin [Nitrostat] 0.4 mg SL UD #25 tab.subl 05/12/20 Pantoprazole Sodium [Protonix] 40 mg PO BID #60 tab 05/17/20 Primary Care Physician: Kristyn Crouch PA-C [Primary Care Provider] - Please follow up with your Primary Care Physician in: 3-5 days Please Follow Up With: Dom Blackwood MD When: 1-2 weeks Please Follow Up With: Isamar Meraz MD When: PRN Disposition: Home Minutes spent on discharge:: 35 Patient Condition:: Stable Medical Necessity - Tobacco Use Smoking Status: Never smoker Meaningful Use Info Meaningful Use Diagnoses (Choose all that apply): None applicable Inpatient E&M: 85710 Disch Hosp
[2020-05-17 13:53] VITALS: BP 151/86; PULSE 80; RESP 18; TEMP 36.3; O2SAT 98
--- NOTE | 2020-05-17 14:02 | PHA.DC.MC ---
Pharmacy Service has performed discharge medication reconciliation and counseling for this patient. 1. PANTOPRAZOLE 40MG PO BID The patient's discharge medication list was reviewed for discrepancies and discrepancies were resolved. Home Medications Atorvastatin Calcium [Lipitor] 40 mg PO DAILY #30 tab 05/12/20 Metoprolol Tartrate 25 mg PO BID #60 tab 05/12/20 Nitroglycerin [Nitrostat] 0.4 mg SL UD #25 tab.subl 05/12/20 Pantoprazole Sodium [Protonix] 40 mg PO BID #60 tab 05/17/20 The patient was counseled on the following discharge medications and changes in medications for homegoing were reviewed. The Reason for Use, instructions for use, and potential side effects were reviewed for all new medications. The patient's questions regarding all of their medications were answered. The patient was able to verbally demonstrate an understanding of their discharge medications. Patient counseled by pharmacy technician trainee, [place].
--- NOTE | 2020-05-17 14:12 | CASEMGMT ---
JOB SUAREZ NOTE: Pt being discharged. RN CM to room at this time. Pt denies having any needs or concerns w/going home @ discharge. Key BSN JOB CM
== END 2020-05-17 14:12 | disposition home or self-care (01) | DRG 377 ==
LOC: ED 21:10 → ICU 23:49 → PCU 05-16 21:03
PROVIDERS: Surgery; Admitting Provider Student in an Organized Health Care Education/Training Program; Emergency Provider Emergency Medicine; PCP Family Medicine; Visit Provider Family Medicine
PROC: 0DJ08ZZ Inspection of Upper Intestinal Tract, Via Natural or Artificial Opening Endoscopic (ICD-10-PCS; CPT 43235; principal; 2020-05-14 21:00)
DX: K92.0 Hematemesis (principal); R57.8 Other shock; D62 Acute posthemorrhagic anemia; Z68.41 Body mass index [BMI] 40.0-44.9, adult; K92.1 Melena; K31.819 Angiodysplasia of stomach and duodenum without bleeding; K20.9 Esophagitis, unspecified; I25.10 Atherosclerotic heart disease of native coronary artery without angina pectoris; I10 Essential (primary) hypertension; E78.5 Hyperlipidemia, unspecified; E66.01 Morbid (severe) obesity due to excess calories; Z95.5 Presence of coronary angioplasty implant and graft; R10.13 Epigastric pain; Z79.899 Other long term (current) drug therapy
CPT/HCPCS: 36415; 71045; 74018; 80048; 84484; 85014; 85018; 85025; 86644; 86850; 86900; 86901; 86920; 86922; 93005; 99152; 99285; J7030; J7040; J7050; P9016; P9040; A4216; J2405; J3490

== ENCOUNTER 2020-11-21 06:05 | Observation (INO) | payer SELFPAY ==
[2020-05-29 14:33] VITALS: BMI 40.4
[2020-11-21] VITALS (14 sets, daily range): BP systolic 104–151; BP diastolic 59–123; PULSE 101–132; RESP 12–22; TEMP 36.6–37.3; O2SAT 95–100; BMI 39.0; BMI 41.5; BMI 41.6
--- NOTE | 2020-11-21 06:15 | EKG12_ITS ---
Test Reason : Blood Pressure : / mmHG Vent. Rate : 123 BPM Atrial Rate : 123 BPM P-R Int : 124 ms QRS Dur : 084 ms QT Int : 290 ms P-R-T Axes : 023 012 025 degrees QTc Int : 415 ms Sinus tachycardia Otherwise normal ECG Confirmed by KAVON HOOD, ANA MARIA ([id number]), brands editor YAEL MEDEROS ([id number]) on 11/23/2020 9:31:43 AM Referred By: Esther Collier Confirmed By:ANA MARIA JACOBSON MD
--- NOTE | 2020-11-21 06:17 | RAD_ITS ---
STUDY: X-RAY - ABDOMEN/PELVIS REASON FOR EXAM: Male, 45 years old. NG INSERTION IMAGE #1 TECHNIQUE: Single AP view of the abdomen / pelvis. 6:34 AM COMPARISON: November 21, 2020 634 AM, FINDINGS: This is a limited images multiple images. There is a feeding tube present the tip appears to be within the distal stomach. RAD/Abdomen Single View (Portable) IMPRESSION: Feeding tube present with the tip in the stomach. Electronically Signed: Latha Quinones MD at 7:14 EST Tel , Service support ,
--- NOTE | 2020-11-21 06:18 | ED.VIS.GEN ---
History of Present Illness Chief Complaint: GI Bleed Narrative: This patient is a 45-year-old male who presents with an upper GI bleed. He does have a prior history of upper GI bleed requiring transfusion of multiple units of packed red blood cells. He did have an EGD at that time which showed some evidence of mild gastric antral vascular ectasia and clots but no active bleeding. He did complete a course of Protonix but is no longer on this. He states he had melanotic stool last night. He then developed epigastric pain and a sensation of feeling bloated that felt very similar to when he had his prior GI bleed. EMS was contacted. He then had an episode of massive hematemesis. His symptoms are improved he states he still feels a little bit bloated. No chest pain or difficulty breathing. Past Medical History - Allergies and Home Meds Allergies/Adverse Reactions: Allergies No Known Allergies Allergy (Verified 11/21/20 06:07) Primary Care Physician: Kristyn Crouch PA-C [Primary Care Provider] - Past Medical History: - - Hypertension, hyperlipidemia, coronary artery disease Surgical History: - - Angioplasty and cardiac stent placement 2017 Smoking Status: Former smoker - Family History Maternal Family History: Family History (Last Reviewed 05/29/20 @ 15:[address] Dom Blackwood MD) Grandfather Heart disease Family History: Reports: No pertinent history Paternal Family History: Family History (Last Reviewed 05/29/20 @ 15:[address] Dom Blackwood MD) Grandfather Heart disease Family History: Reports: No pertinent history Review of Systems All systems negative except as indicated General: Denies: Fever Eyes: Denies: Visual changes - bilaterally ENT: Denies: Bilateral ear pain Cardiovascular: Denies: Chest pain Respiratory: Denies: Dyspnea Gastrointestinal: Reports: Abdominal pain, Vomiting, Melena, - - Hematemesis Musculoskeletal: Denies: Myalgias, Arthralgias Skin: Denies: Rash Neurological: Denies: Headache Allergy: Denies: Uticaria Physical Exam Vital Signs/Narrative: Vital Signs Temp Pulse Resp BP Pulse Ox 11/21/20 06:15 104/85 H 11/21/20 06:07 98.2 F 111 H 22 H 151/123 H 95 Inital Vital Signs reviewed: Yes General: Well nourished Head: Normocephalic Eyes: EOMI ENT: Moist mucous membranes Neck: Supple Cardiovascular: Regular rhythm, Tachycardia Respiratory: No distress, CTA bilaterally Abdomen: Soft, Nontender, Nondistended Skin: Normal color Neurological: Alert Psychological: Normal affect Diagnostic/Tx/Re-eval - Medical Decision Making Patient presented with his clothing saturated with blood and multiple clots. Given Zofran for nausea. Patient was given IV Protonix. An NG was placed. Patient has small amount of grossly bloody material but does not appear to be actively bleeding at this time. Laboratory studies notable for hemoglobin of 11, BUN is 50, WBCs 22,000 I believe this is just related to acute reaction than an infectious process. I spoke to Dr. Collier who is on-call for surgery. Plan is for emergent upper endoscopy and based on those results determine if the patient be admitted to our ICU versus if a transfer would be required. Patient signed out to the oncoming physician for follow-up after emergent EGD. - Critical Care Time Critical care time (excluding procedures): 30-74 minutes, Discussing w/Consultants ED Disposition - Plan for ED Patient: Diagnosis: UGIB (upper gastrointestinal bleed) Referrals: Kristyn Crouch PA-C [Primary Care Provider] -
[2020-11-21] MEDS: 0.9% Normal Saline 1,000 ML 1000 ML IV (06:20)
[2020-11-21 06:27] LABS: Absolute Neutrophil Count 16.2 X10^3/uL (2.0-7.7); Basophil# 0.11 X10^3/uL; Basophil% 0.5 % (0-1); Hematocrit 35.9 % (40-54); Hemoglobin 11.6 g/dL (13.0-16.5); Lymphocyte % 17.5 % (19-41); Mean Corp Hgb Conc 32.3 g/dL (32-36); Mean Platelet Vol. 9.7 fl (6.2-12.0); Monocyte# 1.29 X10^3/uL; Monocyte% 5.8 % (0-10); NRBC Flagged by Analyzer 0 % (0-5); Neutrophil # 16.24 X10^3/uL (2.7-7.7); Neutrophil % 72.8 % (47-70); Platelet Count 339 K/mm3 (150-450); RBC Distribution Width CV 13.9 % (11.6-14.6); RBC Distribution Width SD 48.5 fl (35.1-43.9); Red Blood Count 3.74 M/mm3 (4.6-6.2); White Blood Count 22.3 K/mm3 (4.4-11.0)
[2020-11-21 06:37] LABS: International Normalized Ratio 1.1; Partial Thromboplast Time 23.7 Seconds (24.1-36.2); Prothrombin Time (Protime)PT. 13.5 SECONDS (11.7-14.9)
[2020-11-21] MEDS: Ondansetron 4 MG/2 ML Vial IV (06:37)
[2020-11-21 06:44] LABS: ALB/GLOB Ratio 1.1 RATIO (0.9-2.4); AST(SGOT) 20 U/L (15-37); Alanine Aminotransfer ALT/SGPT 75 U/L (16-61); Albumin, Serum 3.3 g/dL (3.2-5.0); Alkaline Phosphatase 44 U/L (45-117); Anion Gap 8 (5-15); BUN 50 mg/dL (7-18); BUN/Creat Ratio 43.5 RATIO (10-20); Calcium,Total 8.8 mg/dL (8.5-10.1); Chloride 107 mmol/L (98-107); Creatinine, Serum 1.15 mg/dL (0.70-1.30); EST Glomerular Filtration Rate 74 mL/min (>60); Est Glom Filt Rate - Afr Amer 89 mL/min (>60); Estimated Creatinine Clearance 90.91 ml/min; Globulin 3.1 g/dL (2.2-4.2); Glucose 155 mg/dL (74-106); Potassium 4.3 mmol/L (3.5-5.1); Protein, Total 6.4 g/dL (6.4-8.2); Sodium Level 139 mmol/L (136-145)
--- NOTE | 2020-11-21 06:46 | RAD_ITS ---
STUDY: X-RAY - ABDOMEN/PELVIS REASON FOR EXAM: Male, 45 years old. NG INSERTION IMAGE #2 TECHNIQUE: Single AP view of the abdomen / pelvis. At 6:34 AM COMPARISON: May 14, 2020 chest x-ray FINDINGS: This is a image of the lower chest and upper abdomen on the left side. There is a feeding tube present the tip appears to be coiled near the gastroesophageal junction. At 6:34 AM there is a feeding tube present coiled in the stomach with the tip at the gastroesophageal junction. The subsequent image demonstrates that the tubing is within the distal esophagus. RAD/Abdomen Single View IMPRESSION: At 6:34 AM there is a feeding tube present coiled in the stomach with the tip at the gastroesophageal junction. The subsequent image demonstrates that the tubing is within the distal esophagus. Electronically Signed: Latha Quinones MD at 7:16 EST Tel , Service support ,
--- NOTE | 2020-11-21 06:49 | RAD_ITS ---
STUDY: X-RAY - ABDOMEN/PELVIS REASON FOR EXAM: Male, 45 years old. NG INSERTION IMAGE #3 TECHNIQUE: Single AP view of the abdomen / pelvis. COMPARISON: November 21, 2020 abdomen series FINDINGS: Left lower lobe atelectasis. Degenerative is present. Scar with the tip in the stomach. Recommend correlation other tubing as there is a additional tube overlying the left upper quadrant termination point left and midline within the mediastinum. This is an image of the upper abdomen involving the left side of the chest. RAD/Abdomen Single View IMPRESSION: Recommend correlation other tubing as there is a additional tube overlying the left upper quadrant termination point left and midline within the mediastinum. The feeding tube appears to be in satisfactory position. Electronically Signed: Latha Quinones MD at 7:11 EST Tel , Service support ,
[2020-11-21 07:06] LABS: Lipase 98 U/L (73-393)
--- NOTE | 2020-11-21 07:16 | PCM.CONS.GEN ---
Reason for Consult Date of Consultation: 11/21/20 History of Present Illness: The patient is a 45 year old M Presented to the ER by aldo with having hematemesis. Patient did have a couple large hematemesis in route and in the ER. Patient previously had an EGD 05/2020. Patient states after then he did have issues with shingles on the right side of his face. Patient states that he did complete his Protonix prescription from his previous EGD. 05/2020 hospital stay which he got 7 units packed red blood cells as he came in with a hemoglobin of 6.2. Patient's current hemoglobin is mid 11's. White blood count is 22 but has also been on steroids for last 3 weeks.Patient states he has been taking Pepcid daily with the steroids as prescribed by his PCP.Patient previously had 2 Cardiac stent placed 3 years ago.Patient's heart rate in the ER was in the 130s. Currently is about 115 Past Medical History Past Medical History (Chronic Problems): Chronic Problems (Last Reviewed 05/29/20 @ 15:[address] Dom Blackwood MD) Hyperlipidemia (Chronic) Atherosclerosis of coronary artery of [place] heart without angina pectoris (Chronic) Medical History: Medical History (Last Reviewed 05/29/20 @ 15:[address] Dom Blackwood MD) Hyperlipidemia (Chronic) E78.5 Atherosclerosis of coronary artery of [place] heart without angina pectoris (Chronic) I25.10 Atypical chest pain (Resolved) R07.89 Dyspnea (Resolved) R06.00 Acute upper GI bleed (Resolved) K92.2 Hemorrhagic shock (Resolved) R57.8 Acute blood loss anemia (Acute) D62 Allergies No Known Allergies Allergy (Verified 11/21/20 06:07) Home Medications: Ambulatory Orders Medication Instructions Recorded Prednisone 20 mg PO DAILY 11/21/20 Valacyclovir 1 tab PO TID 11/21/20 Surgical History: Surgical History (Last Reviewed 05/29/20 @ 15:[address] Dom Blackwood MD) History of coronary artery stent placement Onset Date: 09/18/17 Z95.5 3 x 20 mm Synergy MR stent to dRCA, Balloon angioplasty to ostium of rPDA, 4 x 20 mm Synergy MR to mRCA 09/18/17 Surgical History: - - Angioplasty and cardiac stent placement 2016 Psychiatric History: No pertinent psych hx Smoking Status: Former smoker Alcohol: Occasional - *Family History Maternal Family History: Family History (Last Reviewed 05/29/20 @ 15:[address] Dom Blackwood MD) Grandfather Heart disease History Items: No pertinent history Paternal Family History: Family History (Last Reviewed 05/29/20 @ 15:[address] 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 Dom Blackwood MD) UGIB (upper gastrointestinal bleed) (Acute) - Physical Exam Vitals/I&O's: Vital Signs Temp Pulse Resp BP Pulse Ox 98.2 F 132 H 16 110/73 98 11/21/20 06:07 11/21/20 07:07 11/21/20 07:07 11/21/20 07:07 11/21/20 07:07 Oxygen Delivery Method Room Air Weight: 288 lb 2.307 oz Body Mass Index (BMI) 39.0 Intake and Output for Last 24 Hours 11/19/20 11/20/20 11/21/20 23:59 23:59 23:59 Intake Total 35 / 35 Balance 35 / 35 General: Alert, Oriented x3, Cooperative Lungs: Normal air movement Cardiovascular: Tachycardic Abdomen: Soft, Non Tender, Non-Distended Neurological: Facial Droop - Secondary to Valencia's palsy from shingles, facial process has improved since the steroids per patient based all does have little bit of a right-sided facial droop Psych/Mental Status: Normal Affect Laboratory Results 11/21/20 06:16: WBC 22.3 H, RBC 3.74 L, Hgb 11.6 L, Hct 35.9 L, MCV 96.0 H, MCH 31.0, MCHC 32.3, RDW Std Deviation 48.5 H, RDW Coeff of [place] 13.9, Plt Count 339, MPV 9.7, Immature Gran % (Auto) 3.400 H, Neut % (Auto) 72.8 H, Lymph % (Auto) 17.5 L, [place] % (Auto) 5.8, Eos % (Auto) 0.0, Baso % (Auto) 0.5, Absolute Neuts (auto) 16.2 H, Absolute Lymphs (auto) 3.90, Nucleated RBC % 0 11/21/20 06:16: PT 13.5, INR 1.1, APTT 23.7 L 11/21/20 06:16: Sodium 139, Potassium 4.3, Chloride 107, Carbon Dioxide 24.0, Anion Gap 8, BUN 50 H, Creatinine 1.15, Estim Creat Clear Calc 90.91, Est GFR (MDRD) Af Amer 89, Est GFR (MDRD) Non-Af 74, BUN/Creatinine Ratio 43.5 H, Glucose 155 H, Calcium 8.8, Total Bilirubin 0.30, AST 20, ALT 75 H, Alkaline Phosphatase 44 L, Total Protein 6.4, Albumin 3.3, Globulin 3.1, Albumin/Globulin Ratio 1.1 11/21/20 06:16: Blood Type Pending, Antibody Screen Pending, Crossmatch See Detail 11/21/20 06:16: Lipase 98 Assessment/Plan All Active Problems (Last Reviewed 05/29/20 @ 15:[address] Dom Blackwood MD) UGIB (upper gastrointestinal bleed) (Acute) Atypical chest pain (Resolved) Dyspnea (Resolved) Acute upper GI bleed (Resolved) Hemorrhagic shock (Resolved) Acute blood loss anemia (Acute) 45-year-old male with hematemesis Patient is been placed on IV Protonix by the ER. I have discussed the above with the patient. I have offered the patient EGD for evaluation. I have explained the risks/benefits of the procedure and described the procedure. I have discussed the risks with the patient, including but not limited to: infection, bleeding, perforation of the GI tract requiring emergency surgery, inability to complete the procedure, injury to any internal organs, complications of anesthesia, etc. - the patient understands and agrees to proceed. I have answered all the patient's questions to the patient's satisfaction and the patient has no further questions. Esther Collier M.D. Pager: [phone] [facility] [address] [place] [address], Outpatient [place], [address] [place] [address] Office: [phone] Inpatient E&M: [id number] Init Hosp L2
--- NOTE | 2020-11-21 07:24 | NURSING ---
[facility]
--- NOTE | 2020-11-21 07:42 | NURSING ---
Report called to Denise in [facility]
--- NOTE | 2020-11-21 08:00 | IMM_PTH ---
PATIENT: PAL GIBBS LOC: MS3 U#:[id number] AGE/SX: 45/M [place] [facility] [place] RE11/21/[address]: Dr. Elijah Escalante MD : 1975 BED: 1 DIS: 11/23/2020 SPEC #: [id number] RECD: 11/21/20 14:47 STATUS: DIANNE REQ #: [id number] OSBALDO: 11/21/20 08:[address]: Esther Collier DEPT: IMMUNOHISTOCHEMISTRY RECD BY: Arabella Sargent ENTERED: 11/21/20 14:48 SP TYPE: IMMUNO OTHR DR: Dr. Elijah Escalante MD [facility] Tissues: Stomach, NOS Procedures: H Pylori (initial) PHYSICIAN & INSTITUTION [place] [address] SPECIMEN INFORMATION: Tissue Source: Antrum biopsy Clinical Info: GI bleed Specimen Number: [id number] CPT code: 57158 METHODOLOGY: Deparaffinized sections of prefer/formalin-fixed tissue or PAP/DQ stained slides are incubated with monoclonal/polyclonal antibodies/oligonucleotide probes. Localization is made via biotin free immunoperoxidase method. Appropriate controls are performed and reacted as expected. Results on target cell population are indicated in the following table: RESULTS: ANTIBODY / CLONE RESULT H Pylori (polyclonal) negative These tests were developed and their performance characteristics determined by [facility]. They may not have been cleared or approved by the U.S. Food and Drug Administration. The FDA has determined that such clearance or approval is not necessary. INTERPRETATION: Antrum, biopsy: Negative for Helicobacter pylori organisms. SJ:jessica 11/22/2020
--- NOTE | 2020-11-21 08:00 | GASB_PTH ---
PATIENT: PAL GIBBS LOC: MS3 U#:[id number] AGE/SX: 45/M ROOM: [facility] [id number] RE11/21/[address]: Dr. Elijah Escalante MD : 1975 BED: 1 DIS: 11/23/2020 SPEC #: [id number] RECD: 11/21/20 11:49 STATUS: DIANNE REQ #: [id number] OSBALDO: 11/21/20 08:[address]: Esther Collier DEPT: SURGICAL PATHOLOGY RECD BY: Sharon Winkler ENTERED: 11/21/20 12:50 SP TYPE: Gastric Bx OTHR DR: MD Dr. Esther Madrid MD Kimberly Hills, PA-C Tissues: Gastric mucous membrane Procedures: Surgery Specimen Level IV Comments: @ Ordering doctor for SUIV edited from to @ by RGOOD at 11/21/20 1420 @ Submitting doctor edited from to @ by RGOOD at 11/21/20 1420 HEADER OPERATION: EGD ([facility] [place]) PRE-OP DIAGNOSIS: GI bleed TISSUE SUBMITTED: Antrum biopsy for H. pylori and path MICROSCOPIC DIAGNOSIS Antrum, biopsy: A fragment of gastric mucosa with minimal inflammation. See comment. ADRIANA:jessica 11/22/2020 COMMENT The results of immunohistochemistry for Helicobacter pylori will be reported separately ([id number]). MICROSCOPIC DESCRIPTION Slides are reviewed. GROSS DESCRIPTION Received in fixative is one container labeled with the patient's name and designated antrum biopsy. The specimen consists of one irregular fragment of light turpin soft tissue that measures 0.4 x 0.2 x 0.1 cm. The specimen is totally submitted in one cassette. / ADRIANA:jessica 11/21/20 TC:5 CPT: 89941
--- NOTE | 2020-11-21 08:23 | NURSING ---
DR RONY MORALES
--- NOTE | 2020-11-21 08:28 | OP.EGD_ITS ---
Patient Name: Sridhar Lozada Procedure Date: 11/21/2020 8:02 AM Date of : 1975 Age: 45 Procedure: Upper GI endoscopy Indications: Hematemesis Providers: Esther Collier MD Medicines: Monitored Anesthesia Care Patient Profile: This is a 45 year old male. Complications: No immediate complications. Procedure: Pre-Anesthesia Assessment: - Prior to the procedure, a History and Physical was performed, and patient medications and allergies were reviewed. The patient's tolerance of previous anesthesia was also reviewed. The risks and benefits of the procedure and the sedation options and risks were discussed with the patient. All questions were answered, and informed consent was obtained. Prior Anticoagulants: The patient has taken no previous anticoagulant or antiplatelet agents. ASA Grade Assessment: Per anesthesia. After reviewing the risks and benefits, the patient was deemed in satisfactory condition to undergo the procedure. After obtaining informed consent, the endoscope was passed under direct vision. Throughout the procedure, the patient's blood pressure, pulse, and oxygen saturations were monitored continuously. The gastroscope was introduced through the mouth, and advanced to the second part of duodenum. The upper GI endoscopy was accomplished without difficulty. The patient tolerated the procedure well. Scope In: 8:10:50 AM Scope Out: 8:16:42 AM Total Procedure Duration Time 0 hours 5 minutes 52 seconds Findings: One superficial esophageal ulcer with adherent clot and stigmata of recent bleeding was found. Four non-bleeding superficial gastric ulcers with adherent clot were found in the gastric fundus and in the gastric body. The largest lesion was 4 mm in largest dimension. Circular erythematous irritation mucosal changes likely from NG suction were found in the gastric antrum. The examined duodenum was normal. Erythematous mucosa was found in the gastric antrum. Biopsies were taken with a cold forceps for histology. Biopsies were taken with a cold forceps for Helicobacter pylori cultures. Impression: - Adherent clot esophageal ulcer. - Non-bleeding gastric ulcers with adherent clot. - Mucosal changes in the antrum. - Normal examined duodenum. - Erythematous mucosa in the antrum. Biopsied. Recommendation: - Admit the patient for observation. - Clear liquid diet. - Use sucralfate tablets 1 gram PO QID. - Use Protonix (pantoprazole) 40 mg IV BID. - Await pathology results. - Continue present medications. Procedure Code(s): --- Professional --- 93886, Esophagogastroduodenoscopy, flexible, transoral; with biopsy, single or multiple Diagnosis Code(s): --- Professional --- K22.10, Ulcer of esophagus without bleeding K25.4, Chronic or unspecified gastric ulcer with hemorrhage K31.89, Other diseases of stomach and duodenum K92.0, Hematemesis CPT copyright 2017 [employer]. All rights reserved. The codes documented in this report are preliminary and upon parking lot attendant review may be revised to meet current compliance requirements. MD Esther Shah MD 11/21/2020 8:28:04 AM This report has been signed electronically. Number of Addenda: 0 Note Initiated On: 11/21/2020 8:02 AM
--- NOTE | 2020-11-21 08:28 | OP.CCLET_ITS ---
11/21/2020 [facility] Re : Upper GI endoscopy procedure for Sridhar Crouch This procedure was performed on Saturday, November 21, 2020. My impressions and recommendations are as follows: Impressions : - Adherent clot esophageal ulcer. - Non-bleeding gastric ulcers with adherent clot. - Mucosal changes in the antrum. - Normal examined duodenum. - Erythematous mucosa in the antrum. Biopsied. Recommendations : - Admit the patient for observation. - Clear liquid diet. - Use sucralfate tablets 1 gram PO QID. - Use Protonix (pantoprazole) 40 mg IV BID. - Await pathology results. - Continue present medications. My findings are described in the full procedure note, which is enclosed. If I can be of further assistance, please feel free to contact me at Doctor phone number(s): , Work: . Sincerely, MD Esther Shah MD 11/21/2020 8:28:04 AM This report has been signed electronically.
--- NOTE | 2020-11-21 08:28 | HP.PCM_ITS ---
Problem List (1) UGIB (upper gastrointestinal bleed) Status: Acute (2) Hyperlipidemia Status: Chronic (3) Atherosclerosis of coronary artery of [place] heart without angina pectoris Status: Chronic Qualifiers: Coronary Disease-Associated Artery/Lesion type: [place] artery Qualified Code(s): I25.10 - Atherosclerotic heart disease of [place] coronary artery without angina pectoris (4) Atypical chest pain Status: Resolved (5) Dyspnea Status: Resolved (6) Acute blood loss anemia Status: Acute (7) Hemorrhagic shock Status: Resolved History of Present Illness Date of Admission: 11/21/20 Chief Complaint: Hematemesis The patient is a 45 year old M 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 Symptoms started on the morning of presentation. Patient was reported to have vomited almost a gallon of blood according to the EMS report. In the emergency department patient was found to be hemodynamically stable. He was typed and crossmatched and consult placed to general surgery. Patient underwent emergency EGD by Dr. Donnelly findings included Adherent clot esophageal ulcer and Non-bleeding gastric ulcers with adherent was started on Protonix drip following the procedure and admitted to regular nursing floor for further management Past Medical History Past Medical History (Chronic Problems): Chronic Problems (Last Reviewed 11/21/20 @ 10:[address] Elijah Escalante MD) Hyperlipidemia (Chronic) Atherosclerosis of coronary artery of [place] heart without angina pectoris (Chronic) Medical History: Medical History (Last Reviewed 11/21/20 @ 10:[address] Elijah Escalante MD) Hyperlipidemia (Chronic) E78.5 Atherosclerosis of coronary artery of [place] heart without angina pectoris (Chronic) I25.10 Atypical chest pain (Resolved) R07.89 Dyspnea (Resolved) R06.00 Acute upper GI bleed (Inactive) K92.2 Hemorrhagic shock (Resolved) R57.8 Acute blood loss anemia (Acute) D62 Allergies No Known Allergies Allergy (Verified 11/21/20 06:07) Home Medications: Ambulatory Orders Medication Instructions Recorded Prednisone 20 mg PO DAILY 11/21/20 Valacyclovir 1 tab PO TID 11/21/20 Surgical History: Surgical History (Last Reviewed 11/21/20 @ 10:[address] Elijah Escalante MD) History of coronary artery stent placement Onset Date: 09/18/17 Z95.5 3 x 20 mm Synergy MR stent to dRCA, Balloon angioplasty to ostium of rPDA, 4 x 20 mm Synergy MR to mRCA 09/18/17 Surgical History: - - Angioplasty and cardiac stent placement 2016 Psychiatric History: No pertinent psych hx Smoking Status: Former smoker - *Family History Maternal Family History: Family History (Last Reviewed 11/21/20 @ 10:[address] Elijah Escalante MD) Grandfather Heart disease History Items: No pertinent history Paternal Family History: Family History (Last Reviewed 11/21/20 @ 10:[address] Elijah Escalante MD) Grandfather Heart disease History Items: Heart Disease Review of Systems Constitutional: Denies: Anorexia, Chills, Fever, Night Sweats, Weight Change HEENT: Denies: Head Aches, Sinus Congestion, Sinus Drainage Cardiovascular: Denies: Chest Pain, Orthopnea, Palpitations, Paroxysmal Noc. Dyspnea Respiratory: Denies: Cough, Shortness of breath at rest, Shortness of breath upon exertion, Sputum production Gastrointestinal: Reports: Hematemesis, Nausea, Vomiting. Denies: Abdominal Pain, Hematochezia, Melena Genitourinary: Denies: Dysuria, Frequency, Hematuria, Urgency Musculoskeletal: Denies: Joint Pain, Joint Tenderness Skin: Denies: Rash Neurological: Denies: Focal weakness, Numbness, Tingling Psychiatric: Denies: Homicidal Ideations, Suicidal Ideations Hematologic/ Lymphatic: Denies: Easy Bruising, Easy Bleeding VTE Information - Inpt Only VTE Present on Admission: No VTE Mechan Device Prophylaxis: None VTE Pharm Prophylaxis ordered?: No Reason prophylaxis not ordered:: Medical Contraindication Patient Problems: Active and Suspected Problems (Last Reviewed 11/21/20 @ 10:[address] Elijah Escalante MD) UGIB (upper gastrointestinal bleed) (Acute) Acute blood loss anemia (Acute) Objective: GENERAL: cooperative HEENT: Atraumatic; EYES; Anicteric, Normal Conjunctiva NECK; supple, normal thyroid, RESPIRATORY: Diminished to auscultation CARDIOVASCULAR: Regular S1 S2, GI: soft, normoactive bowel sounds, : No Renal angle tenderness; EXTREMITIES: No edema, no clubbing, MUSCULOSKELETAL: no muscle waisting NEURO: Awake; L facial droop (from Valencia's palsy) SKIN: No Rash PSYCH; Flat affect - Physical Exam Vitals/I&O's: Vital Signs Temp Pulse Resp BP Pulse Ox 98.1 F 118 H 16 124/88 H 100 11/21/20 08:21 11/21/20 08:21 11/21/20 08:21 11/21/20 08:21 11/21/20 08:21 Oxygen Flow Rate (L/min) 4 Oxygen Delivery Method Nasal Cannula Weight: 130.7 kg Body Mass Index (BMI) 39.0 Intake and Output for Last 24 Hours 11/19/20 11/20/20 11/21/20 23:59 23:59 23:59 Intake Total 35 / 35 Balance 35 / 35 Microbiology Past 72 Hours 11/21/20 07:25 Mucosa - Nose SARS-CoV-2 Antigen (Rapid) - Final Laboratory Results 11/21/20 06:16: WBC 22.3 H, RBC 3.74 L, Hgb 11.6 L, Hct 35.9 L, MCV 96.0 H, MCH 31.0, MCHC 32.3, RDW Std Deviation 48.5 H, RDW Coeff of [place]by 13.9, Plt Count 339, MPV 9.7, Immature Gran % (Auto) 3.400 H, Neut % (Auto) 72.8 H, Lymph % (Auto) 17.5 L, [place] % (Auto) 5.8, Eos % (Auto) 0.0, Baso % (Auto) 0.5, Absolute Neuts (auto) 16.2 H, Absolute Lymphs (auto) 3.90, Nucleated RBC % 0 11/21/20 06:16: PT 13.5, INR 1.1, APTT 23.7 L 11/21/20 06:16: Sodium 139, Potassium 4.3, Chloride 107, Carbon Dioxide 24.0, Anion Gap 8, BUN 50 H, Creatinine 1.15, Estim Creat Clear Calc 90.91, Est GFR (MDRD) Af Amer 89, Est GFR (MDRD) Non-Af 74, BUN/Creatinine Ratio 43.5 H, Glucose 155 H, Calcium 8.8, Total Bilirubin 0.30, AST 20, ALT 75 H, Alkaline Phosphatase 44 L, Total Protein 6.4, Albumin 3.3, Globulin 3.1, Albumin/Globulin Ratio 1.1 11/21/20 06:16: Blood Type O POSITIVE, Antibody Screen NEGATIVE, Crossmatch See Detail 11/21/20 06:16: Lipase 98 Assessment/Plan All Active Problems (Last Reviewed 11/21/20 @ 10:[address] Elijah Escalante MD) UGIB (upper gastrointestinal bleed) (Acute) Atypical chest pain (Resolved) Dyspnea (Resolved) Hemorrhagic shock (Resolved) Acute blood loss anemia (Acute) Patient is a 45-year-old gentleman admitted with hematemesis 1. Upper GI bleed ?Patient presented with hematemesis underwent emergency EGD by Dr. Donnelly which demonstrated; - Adherent clot esophageal ulcer, Non-bleeding gastric ulcers with adherent clot, Erythematous mucosa in the antrum patient admitted to regular nursing floor subsequently. Was typed and crossmatched prior to patient being admitted. Started on Protonix drip. Case discussed with general surgery Carafate to be added to patient's therapy 2. Recent Valencia's palsy ?Patient was on both prednisone as well as valacyclovir prednisone held in view of patient presenting complaints 3. Anemia ?Secondary to acute blood loss anemia ?Monitoring H&H with plans to transfuse if patient becomes symptomatic or hemoglobin falls below 7 4. Coronary artery disease ?With previous stent placement 5. Obesity with BMI of 41.6 ?Weight loss advised 6. Dyslipidemia -Patient was previously discharged on atorvastatin however was not on his home med list when admitted 7. Hypertension - Blood pressure controlled, 8. DVT prophylaxis ?Chemoprophylaxis contraindicated in view of patient presenting complaints 9. Leukocytosis ?Due to patient being on prednisone as well as stress related patient does not have any evidence of active infection Inpatient E&M: [id number] [facility] L3
--- NOTE | 2020-11-21 08:28 | NURSING ---
MED SURG UPPER GI BLEED KITKESHAV
[2020-11-21] MEDS: 0.9% Saline Lock 10 ML Syringe IV (10:08)
[2020-11-21] MEDS: Sucralfate 1 GM Tablet PO ×3 (11:34→21:15)
[2020-11-21 15:21] LABS: Hematocrit 27.6 % (40-54); Hemoglobin 9.1 g/dL (13.0-16.5)
[2020-11-22] VITALS (10 sets, daily range): BP systolic 106–132; BP diastolic 56–69; PULSE 89–105; RESP 16–18; TEMP 36.7–37.3; O2SAT 96–98
[2020-11-22] MEDS: Sucralfate 1 GM Tablet PO ×4 (05:03→21:39)
[2020-11-22 05:40] LABS: Absolute Lymphocyte Count 3.62 X10^3/uL (0.83-4.51); Absolute Neutrophil Count 5.9 X10^3/uL (2.0-7.7); Basophil# 0.04 X10^3/uL; Basophil% 0.4 % (0-1); Eosinophil# 0.11 X10^3/uL; Hematocrit 23.5 % (40-54); Hemoglobin 7.6 g/dL (13.0-16.5); Lymphocyte # 3.62 X10^3/ul (4.0); Lymphocyte % 34.5 % (19-41); Mean Corp Hgb Conc 32.3 g/dL (32-36); Mean Corpuscular Hgb 31.4 pg (27.0-32.0); Mean Corpuscular Volume 97.1 fL (80-94); Mean Platelet Vol. 9.3 fl (6.2-12.0); Monocyte# 0.61 X10^3/uL; Monocyte% 5.8 % (0-10); NRBC Flagged by Analyzer 0 % (0-5); Neutrophil # 5.94 X10^3/uL (2.7-7.7); Neutrophil % 56.7 % (47-70); Platelet Count 154 K/mm3 (150-450); RBC Distribution Width CV 14.1 % (11.6-14.6); RBC Distribution Width SD 48.6 fl (35.1-43.9); Red Blood Count 2.42 M/mm3 (4.6-6.2); White Blood Count 10.5 K/mm3 (4.4-11.0)
[2020-11-22 06:02] LABS: AST(SGOT) 14 U/L (15-37); Alanine Aminotransfer ALT/SGPT 42 U/L (16-61); Albumin, Serum 2.6 g/dL (3.2-5.0); Alkaline Phosphatase 34 U/L (45-117); Anion Gap 5 (5-15); BUN 18 mg/dL (7-18); BUN/Creat Ratio 19.9 RATIO (10-20); Bilirubin, Direct 0.08 mg/dL (0.00-0.30); Calcium,Total 7.7 mg/dL (8.5-10.1); Chloride 110 mmol/L (98-107); EST Glomerular Filtration Rate 97 mL/min (>60); Est Glom Filt Rate - Afr Amer 117 mL/min (>60); Estimated Creatinine Clearance 109.27 ml/min; Globulin 2.5 g/dL (2.2-4.2); Glucose 91 mg/dL (74-106); Magnesium 2.2 mg/dL (1.6-2.6); Phosphorus 2.7 mg/dL (2.5-4.9); Potassium 3.9 mmol/L (3.5-5.1); Protein, Total 5.1 g/dL (6.4-8.2); Sodium Level 140 mmol/L (136-145)
--- NOTE | 2020-11-22 09:22 | PN_ITS ---
Patient Problems: Active and Suspected Problems (Last Reviewed 11/21/20 @ 10:[address] Elijah Escalante MD) UGIB (upper gastrointestinal bleed) (Acute) Acute blood loss anemia (Acute) Reason for Visit: Hematemesis Symptomatic anemia Subjective: Patient is a 45-year-old gentleman admitted with hematemesis patient underwent EGD which found an esophageal and gastric ulcer with clots. Admitted to regular nursing floor started on Protonix drip Patient seen this morning complains of feeling tired. He has been depressed because drop in patient's hemoglobin level from 11.6-7.6. With patient being symptomatic an order was given for patient to be transfused 1 unit PRBC. Order was also given for patient to receive parenteral iron infusion Objective: GENERAL: cooperative HEENT: Atraumatic; EYES; Anicteric, Normal Conjunctiva NECK; supple, normal thyroid, RESPIRATORY: Diminished to auscultation CARDIOVASCULAR: Regular S1 S2, GI: soft, normoactive bowel sounds, : No Renal angle tenderness; EXTREMITIES: No edema, no clubbing, MUSCULOSKELETAL: no muscle waisting NEURO: Awake; L facial droop (from Valencia's palsy) SKIN: No Rash PSYCH; Flat affect Vitals/I&O's: Vital Signs Temp Pulse Resp BP Pulse Ox 98.0 F 96 16 114/69 98 11/22/20 08:50 11/22/20 08:50 11/22/20 08:50 11/22/20 08:50 11/22/20 08:50 Oxygen Flow Rate (L/min) 4 Oxygen Delivery Method Room Air Weight: 131.5 kg Body Mass Index (BMI) 41.5 Intake and Output for Last 24 Hours 11/20/20 11/21/20 11/22/20 23:59 23:59 23:59 Intake Total 2353.33 / 2353.33 1025.00 / 1025.00 Output Total 675 / 1075 1300 / 1300 Balance 1678.33 / 1278.33 -275.00 / -275.00 Microbiology Past 72 Hours 11/21/20 07:25 Mucosa - Nose SARS-CoV-2 Antigen (Rapid) - Final Laboratory Results 11/21/20 15:10: Hgb 9.1 L, Hct 27.6 L 11/22/20 05:36: Sodium 140, Potassium 3.9, Chloride 110 H, Carbon Dioxide 25.0, Anion Gap 5, BUN 18, Creatinine 0.90, Estim Creat Clear Calc 109.27, Est GFR (MDRD) Af Amer 117, Est GFR (MDRD) Non-Af 97, BUN/Creatinine Ratio 19.9, Glucose 91, Calcium 7.7 L, Phosphorus 2.7, Magnesium 2.2, Total Bilirubin 0.40, Direct Bilirubin 0.08, AST 14 L, ALT 42, Alkaline Phosphatase 34 L, Total Protein 5.1 L , Albumin 2.6 L, Globulin 2.5 11/22/20 05:38: WBC 10.5, RBC 2.42 L, Hgb 7.6 L, Hct 23.5 L, MCV 97.1 H, MCH 31.4, MCHC 32.3, RDW Std Deviation 48.6 H, RDW Coeff of [place] 14.1, Plt Count 154, MPV 9.3, Immature Gran % (Auto) 1.600 H, Neut % (Auto) 56.7, Lymph % (Auto) 34.5, [place] % (Auto) 5.8, Eos % (Auto) 1.0, Baso % (Auto) 0.4, Absolute Neuts (auto) 5.9, Absolute Lymphs (auto) 3.62, Nucleated RBC % 0 Current Medications Acetaminophen (Acetaminophen 325 Mg Tablet) 650 mg PO Q6H PRN PRN PRN Reason: Pain Score 1-10/Temp > 100.7 F Albuterol Sulfate (Albuterol 2.5 Mg/3 Ml Vial.Neb.) 2.5 mg INHALATION Q2H PRN PRN PRN Reason: Shortness of Breath/Wheezing Potassium Chloride/Sodium Chloride (Kcl 20meq In 0.45% Ns 1000ml) 1,000 mls @ 100 mls/hr IV .Q10H ARIA Last Admin: 11/22/20 05:02 Dose: 100 mls/hr Documented by: Pantoprazole Sodium 80 mg/ (Sodium Chloride) 100 mls @ 10 mls/hr CONT INF Q10H ARIA Last Admin: 11/22/20 05:05 Dose: 10 mls/hr Documented by: Sodium Chloride () 250 mls @ 15 mls/hr IV .[id number] PRN PRN Reason: Saline Flush Sodium Chloride () 250 mls @ 15 mls/hr IV .[id number] PRN PRN Reason: Additional IVPB Infusion Ferric Sodium Gluconate Complex 250 mg/ Sodium Chloride 270 mls @ 135 mls/hr IV X1 ONE Stop: 11/22/20 11:59 Melatonin (Melatonin 3 Mg Tablet) 3 mg PO QHS PRN PRN PRN Reason: INSOMNIA Morphine Sulfate (Morphine 4 Mg/Ml Syringe) 4 mg IV Q3H PRN PRN PRN Reason: Pain Score 6-10 Ondansetron HCl (Ondansetron 4 Mg/2 Ml Vial) 4 mg IV Q8H PRN PRN PRN Reason: NAUSEA/VOMITING Oxycodone HCl (Oxycodone 5 Mg Tablet) 5 mg PO Q4H PRN PRN PRN Reason: Pain Score 4-5 Promethazine HCl (Promethazine 25 Mg/Ml Syringe) 25 mg IM Q6H PRN PRN PRN Reason: Breakthrough nausea/vomiting Sodium Chloride (0.9% Saline Lock 10 Ml Syringe) 10 - 40 ml IV UD PRN PRN Reason: SALINE FLUSH Last Admin: 11/21/20 10:08 Dose: 10 ml Documented by: Sucralfate (Sucralfate 1 Gm Tablet) 1 gm PO 1HR_ACHS ARIA Last Admin: 11/22/20 05:03 Dose: 1 gm Documented by: STROKE Vital Signs/Narrative: Vital Signs Temp Pulse Resp BP Pulse Ox 11/22/20 08:50 98.0 F 96 16 114/69 98 Medical Necessity - Tobacco Use Smoking Status: Former smoker Tobacco Use: Cigars Assessment/Plan All Active Problems (Last Reviewed 11/21/20 @ 10:[address] Elijah Escalante MD) UGIB (upper gastrointestinal bleed) (Acute) Atypical chest pain (Resolved) Dyspnea (Resolved) Hemorrhagic shock (Resolved) Acute blood loss anemia (Acute) Patient is a 45-year-old gentleman admitted with hematemesis 1. Upper GI bleed ?Patient presented with hematemesis underwent emergency EGD by Dr. Cony marcano demonstrated; - Adherent clot esophageal ulcer, Non-bleeding gastric ulcers with adherent clot, Erythematous mucosa in the antrum patient admitted to regular nursing floor subsequently. Was typed and crossmatched prior to patient being admitted. Started on Protonix drip. Case discussed with general surgery Carafate to be added to patient's therapy -11/22/2020 patient seen this morning complains of feeling tired. He has been depressed because drop in patient's hemoglobin level from 11.6-7.6. With patient being symptomatic an order was given for patient to be transfused 1 unit PRBC. Order was also given for patient to receive parenteral iron infusion 2. Recent Valencia's palsy ?Patient was on both prednisone as well as valacyclovir prednisone held in view of patient presenting complaints 3. Anemia ?Secondary to acute blood loss anemia ?Monitoring H&H with plans to transfuse if patient becomes symptomatic or hemoglobin falls below 7 4. Coronary artery disease ?With previous stent placement 5. Obesity with BMI of 41.6 ?Weight loss advised 6. Dyslipidemia -Patient was previously discharged on atorvastatin however was not on his home med list when admitted 7. Hypertension - Blood pressure controlled, 8. DVT prophylaxis ?Chemoprophylaxis contraindicated in view of patient presenting complaints 9. Leukocytosis ?Due to patient being on prednisone as well as stress related patient does not have any evidence of active infection Inpatient E&M: [id number] [facility]osp L3
--- NOTE | 2020-11-22 09:52 | PCM.PN.SRG ---
Patient Problems: Active and Suspected Problems (Last Reviewed 11/21/20 @ 10:[address] Elijah Escalante MD) UGIB (upper gastrointestinal bleed) (Acute) Acute blood loss anemia (Acute) Subjective: Patient hemoglobin is 7.6 this morning. Patient is getting 1 unit packed red blood cells transfused. - Physical Exam Vitals/I&O's: Vital Signs Temp Pulse Resp BP Pulse Ox 98.0 F 96 16 114/69 98 11/22/20 08:50 11/22/20 08:50 11/22/20 08:50 11/22/20 08:50 11/22/20 08:50 Oxygen Flow Rate (L/min) 4 Oxygen Delivery Method Room Air Weight: 289 lb 14.526 oz Body Mass Index (BMI) 41.5 Intake and Output for Last 24 Hours 11/20/20 11/21/20 11/22/20 23:59 23:59 23:59 Intake Total 2353.33 / 2353.33 1025.00 / 1025.00 Output Total 675 / 1075 1300 / 1300 Balance 1678.33 / 1278.33 -275.00 / -275.00 General: Alert, Oriented x3, Cooperative, No apparent distress HEENT: Atraumatic Lungs: Normal air movement Cardiovascular: Regular rate Abdomen: Soft, Non Tender, Non-Distended Microbiology Past 72 Hours 11/21/20 07:25 Mucosa - Nose SARS-CoV-2 Antigen (Rapid) - Final Laboratory Results 11/21/20 15:10: Hgb 9.1 L, Hct 27.6 L 11/22/20 05:36: Sodium 140, Potassium 3.9, Chloride 110 H, Carbon Dioxide 25.0, Anion Gap 5, BUN 18, Creatinine 0.90, Estim Creat Clear Calc 109.27, Est GFR (MDRD) Af Amer 117, Est GFR (MDRD) Non-Af 97, BUN/Creatinine Ratio 19.9, Glucose 91, Calcium 7.7 L, Phosphorus 2.7, Magnesium 2.2, Total Bilirubin 0.40, Direct Bilirubin 0.08, AST 14 L, ALT 42, Alkaline Phosphatase 34 L, Total Protein 5.1 L, Albumin 2.6 L, Globulin 2.5 11/22/20 05:38: WBC 10.5, RBC 2.42 L, Hgb 7.6 L, Hct 23.5 L, MCV 97.1 H, MCH 31.4, MCHC 32.3, RDW Std Deviation 48.6 H, RDW Coeff of [place] 14.1, Plt Count 154, MPV 9.3, Immature Gran % (Auto) 1.600 H, Neut % (Auto) 56.7, Lymph % (Auto) 34.5, [place] % (Auto) 5.8, Eos % (Auto) 1.0, Baso % (Auto) 0.4, Absolute Neuts (auto) 5.9, Absolute Lymphs (auto) 3.62, Nucleated RBC % 0 Current Medications Acetaminophen (Acetaminophen 325 Mg Tablet) 650 mg PO Q6H PRN PRN PRN Reason: Pain Score 1-10/Temp > 100.7 F Albuterol Sulfate (Albuterol 2.5 Mg/3 Ml Vial.Neb.) 2.5 mg INHALATION Q2H PRN PRN PRN Reason: Shortness of Breath/Wheezing Potassium Chloride/Sodium Chloride (Kcl 20meq In 0.45% Ns 1000ml) 1,000 mls @ 100 mls/hr IV .Q10H [facility] Last Admin: 11/22/20 05:02 Dose: 100 mls/hr Documented by: Pantoprazole Sodium 80 mg/ (Sodium Chloride) 100 mls @ 10 mls/hr CONT INF Q10H [facility] Last Admin: 11/22/20 05:05 Dose: 10 mls/hr Documented by: Sodium Chloride () 250 mls @ 15 mls/hr IV .[id number] PRN PRN Reason: Saline Flush Sodium Chloride () 250 mls @ 15 mls/hr IV .[id number] PRN PRN Reason: Additional IVPB Infusion Ferric Sodium Gluconate Complex 250 mg/ Sodium Chloride 270 mls @ 135 mls/hr IV X1 ONE Stop: 11/22/20 11:59 Melatonin (Melatonin 3 Mg Tablet) 3 mg PO QHS PRN PRN PRN Reason: INSOMNIA Morphine Sulfate (Morphine 4 Mg/Ml Syringe) 4 mg IV Q3H PRN PRN PRN Reason: Pain Score 6-10 Ondansetron HCl (Ondansetron 4 Mg/2 Ml Vial) 4 mg IV Q8H PRN PRN PRN Reason: NAUSEA/VOMITING Oxycodone HCl (Oxycodone 5 Mg Tablet) 5 mg PO Q4H PRN PRN PRN Reason: Pain Score 4-5 Promethazine HCl (Promethazine 25 Mg/Ml Syringe) 25 mg IM Q6H PRN PRN PRN Reason: Breakthrough nausea/vomiting Sodium Chloride (0.9% Saline Lock 10 Ml Syringe) 10 - 40 ml IV UD PRN PRN Reason: SALINE FLUSH Last Admin: 11/21/20 10:08 Dose: 10 ml Documented by: Sucralfate (Sucralfate 1 Gm Tablet) 1 gm PO 1HR_ACHS ARIA Last Admin: 11/22/20 05:03 Dose: 1 gm Documented by: Medical Necessity - Tobacco Use Smoking Status: Former smoker Tobacco Use: Cigars Assessment/Plan All Active Problems (Last Reviewed 11/21/20 @ 10:[address] Elijah Escalante MD) UGIB (upper gastrointestinal bleed) (Acute) Atypical chest pain (Resolved) Dyspnea (Resolved) Hemorrhagic shock (Resolved) Acute blood loss anemia (Acute) 45-year-old male with hematemesis, with superficial esophageal ulcer and gastric ulcers with adherent clots per EGD Continue IV Protonix and Carafate p.o. Okay to advance to full diet Anemia?7.6 hemoglobin patient is going to get 1 unit packed red blood cells. Esther Collier M.D. Pager: [phone] [facility] [address] [place] [address], [facility], [address] [place] [id number] Office: [phone] Inpatient E&M: [id number] [facility] L1
--- NOTE | 2020-11-22 10:51 | CASEMGMT ---
Addendum entered by Britta Hill 11/22/20 14:54: SW did meet with pt regarding self-pay. Pt confirms he is self-pay, states he makes too much for Medicaid. Pt states he just recently got denied Medicaid about three weeks ago. Pt confirms he has been in contact with [employer]. Pt states he is on a payment plan from pt's last visit and will just continue his payment plan. Pt states at this time he has no financial concerns. SW did provide pt with financial resources including [employer], [employer], People to people, and RX assistance resources. Pt denied additional needs or concerns at this time. Original Note: Social Work Note Pt is listed as self-pay. [employer] has been in contact with pt. Per PFS pt is overqualified for HCAP but is eligible to apply for [employer]. PFS to mail [employer] and HCAP application to pt. SW to remain available if additional financial concerns arise. Britta Hill MANUFACTURING FINANCE MANAGER, HEARING IMPAIRED ITINERANT TEACHER
[2020-11-22 18:25] LABS: Hematocrit 26.5 % (40-54); Hemoglobin 8.3 g/dL (13.0-16.5)
--- NOTE | 2020-11-22 23:04 | PCS.PANDOC ---
PANDEMIC DOCUMENTATION INITIATED: Date: 11/21/2020 Time: 604
[2020-11-23 04:30] VITALS: BP 103/56; PULSE 75; RESP 16; TEMP 36.4; O2SAT 100
[2020-11-23 05:46] LABS: Absolute Lymphocyte Count 2.49 X10^3/uL (0.83-4.51); Absolute Neutrophil Count 5.6 X10^3/uL (2.0-7.7); Basophil# 0.04 X10^3/uL; Basophil% 0.4 % (0-1); Eosinophil# 0.17 X10^3/uL; Eosinophils% 1.9 % (0-5); Hematocrit 24.5 % (40-54); Hemoglobin 7.9 g/dL (13.0-16.5); Lymphocyte # 2.49 X10^3/ul (4.0); Lymphocyte % 27.4 % (19-41); Mean Corp Hgb Conc 32.2 g/dL (32-36); Mean Corpuscular Hgb 31.6 pg (27.0-32.0); Mean Platelet Vol. 9.4 fl (6.2-12.0); Monocyte# 0.63 X10^3/uL; Monocyte% 6.9 % (0-10); NRBC Flagged by Analyzer 0.6 % (0-5); Neutrophil # 5.55 X10^3/uL (2.7-7.7); Neutrophil % 61.1 % (47-70); Platelet Count 156 K/mm3 (150-450); RBC Distribution Width CV 14.2 % (11.6-14.6); RBC Distribution Width SD 48.9 fl (35.1-43.9); White Blood Count 9.1 K/mm3 (4.4-11.0)
[2020-11-23 06:12] LABS: Anion Gap 3 (5-15); BUN 12 mg/dL (7-18); BUN/Creat Ratio 11.4 RATIO (10-20); Calcium,Total 8.2 mg/dL (8.5-10.1); Chloride 112 mmol/L (98-107); Creatinine, Serum 1.05 mg/dL (0.70-1.30); EST Glomerular Filtration Rate 82 mL/min (>60); Est Glom Filt Rate - Afr Amer 99 mL/min (>60); Estimated Creatinine Clearance 93.66 ml/min; Glucose 90 mg/dL (74-106); Potassium 4.4 mmol/L (3.5-5.1); Sodium Level 142 mmol/L (136-145)
[2020-11-23] MEDS: Sucralfate 1 GM Tablet PO ×2 (06:33→10:52)
--- NOTE | 2020-11-23 08:30 | PCM.DC ---
- Discharge Diagnoses Current Active Problems: Current Active and Chronic Problems (Last Reviewed 11/21/20 @ 10:[address] Elijah Escalante MD) UGIB (upper gastrointestinal bleed) (Acute) Hyperlipidemia (Chronic) Atherosclerosis of coronary artery of [place] heart without angina pectoris (Chronic) Acute blood loss anemia (Acute) You will use the following diet at home:: Regular Your food should be the consistency of: Soft (bite-sized & easy to chew/swallow) Discharge Activity: Return to Normal Activity Allergies/Adverse Reactions: Allergies No Known Allergies Allergy (Verified 11/21/20 06:07) Medications to take at Discharge Valacyclovir 1 tab PO TID 11/21/20 Iron Poly/Vit C [Niferex-150] 150 mg PO DAILYCM #60 cap 11/23/20 Pantoprazole Sodium 40 mg PO BID #60 tablet. 11/23/20 Sucralfate [Carafate] 1 gm PO 1HR_ACHS #120 tab 11/23/20 The following prescriptions were given: Sucralfate [Carafate] 1 gm PO 1HR_ACHS #120 tab Transmission Status: Received by [id number] Iron Poly/Vit C [Niferex-150] 150 mg PO DAILYCM #60 cap Transmission Status: Received by [id number] Pantoprazole Sodium 40 mg PO BID #60 tablet. Transmission Status: Received by [id number] Orders to be completed after discharge: HH, Hemoglobin & Hematocrit Time Frame: 11/27/20, Facility: [facility], Location: Laboratory Primary Care Physician: Kristyn Crouch PAWarnerC [Primary Care Provider] - Please follow up with your Primary Care Physician in: IN 1-2 WEEKS Test Results: Test results from this visit will be discussed in further detail at your follow-up appointment, if applicable. Please Follow Up With: Esther Collier MD When: NEXT WEEK Proposed Discharge Date: 11/23/20
--- NOTE | 2020-11-23 08:30 | PCM.DC.SUM ---
Discharge Date and Diagnosis - Problem List Patient Problems: Active and Suspected Problems (Last Reviewed 11/21/20 @ 10:[address] Elijah Escalante MD) UGIB (upper gastrointestinal bleed) (Acute) Acute blood loss anemia (Acute) Date of Admission: 11/21/20 Date of Discharge: 11/23/20 - Primary Discharge Diagnosis Acute Problems: Active Problems (Last Reviewed 11/21/20 @ 10:[address] Elijah Escalante MD) UGIB (upper gastrointestinal bleed) (Acute) Acute blood loss anemia (Acute) - Secondary Discharge Diagnosis Chronic Problems: Chronic Problems (Last Reviewed 11/21/20 @ 10:[address] Elijah Escalante MD) Hyperlipidemia (Chronic) Atherosclerosis of coronary artery of [place] heart without angina pectoris (Chronic) Hospital Course and Treatment Operations: None Summary of Care Provided: Patient is a 45-year-old gentleman admitted with hematemesis 1. Upper GI bleed ?Patient presented with hematemesis underwent emergency EGD by Dr. Collier which demonstrated; - Adherent clot esophageal ulcer, Non-bleeding gastric ulcers with adherent clot, Erythematous mucosa in the antrum patient admitted to regular nursing floor subsequently. Was typed and crossmatched prior to patient being admitted. Started on Protonix drip. Case discussed with general surgery Carafate to be added to patient's therapy -11/22/2020 patient seen this morning complains of feeling tired. He has been depressed because drop in patient's hemoglobin level from 11.6-7.6. With patient being symptomatic an order was given for patient to be transfused 1 unit PRBC. Order was also given for patient to receive parenteral iron infusion -11/23/2020; patient stable for discharge. Prescription written for Protonix, Carafate as well as iron supplements. Patient to follow-up with Dr. Collier with general surgery for repeat CBC next week 2. Recent Valencia's palsy ?Patient was on both prednisone as well as valacyclovir prednisone held in view of patient presenting complaints 3. Anemia ?Secondary to acute blood loss anemia ?Monitoring H&H with plans to transfuse if patient becomes symptomatic or hemoglobin falls below 7 4. Coronary artery disease ?With previous stent placement 5. Obesity with BMI of 41.6 ?Weight loss advised 6. Dyslipidemia -Patient was previously discharged on atorvastatin however was not on his home med list when admitted 7. Hypertension - Blood pressure controlled, 8. DVT prophylaxis ?Chemoprophylaxis contraindicated in view of patient presenting complaints 9. Leukocytosis ?Due to patient being on prednisone as well as stress related patient does not have any evidence of active infection -Patient's WBC count at the time of discharge- within normal limits Patient Problems: Active and Suspected Problems (Last Reviewed 11/21/20 @ 10:[address] Elijah Escalnate MD) UGIB (upper gastrointestinal bleed) (Acute) Acute blood loss anemia (Acute) Objective: GENERAL: cooperative HEENT: Atraumatic; EYES; Anicteric, Normal Conjunctiva NECK; supple, normal thyroid, RESPIRATORY: Diminished to auscultation CARDIOVASCULAR: Regular S1 S2, GI: soft, normoactive bowel sounds, : No Renal angle tenderness; EXTREMITIES: No edema, no clubbing, MUSCULOSKELETAL: no muscle waisting NEURO: Awake; L facial droop (from Valencia's palsy) SKIN: No Rash PSYCH; Flat affect - Physical Exam Vitals/I&O's: Vital Signs Temp Pulse Resp BP Pulse Ox 97.6 F L 75 16 103/56 L 100 11/23/20 04:30 11/23/20 04:30 11/23/20 04:30 11/23/20 04:30 11/23/20 04:30 Oxygen Flow Rate (L/min) 4 Oxygen Delivery Method Room Air Weight: 131.5 kg Body Mass Index (BMI) 41.5 Intake and Output for Last 24 Hours 11/21/20 11/22/20 11/23/20 23:59 23:59 23:59 Intake Total 2353.33 / 2353.33 3894.17 / 3894.17 1373.00 / 1373.00 Output Total 675 / 1075 4200 / 4200 900 / 900 Balance 1678.33 / 1278.33 -305.83 / -305.83 473.00 / 473.00 Microbiology Past 72 Hours 11/21/20 07:25 Mucosa - Nose SARS-CoV-2 Antigen (Rapid) - Final Laboratory Results 11/21/20 06:16: Blood Type O POSITIVE, Antibody Screen NEGATIVE, Crossmatch See Detail 11/22/20 18:05: Hgb 8.3 L, Hct 26.5 L 11/23/20 05:35: Sodium 142, Potassium 4.4, Chloride 112 H, Carbon Dioxide 27.0, Anion Gap 3 L, BUN 12, Creatinine 1.05, Estim Creat Clear Calc 93.66, Est GFR (MDRD) Af Amer 99, Est GFR (MDRD) Non-Af 82, BUN/Creatinine Ratio 11.4, Glucose 90, Calcium 8.2 L 11/23/20 05:35: WBC 9.1, RBC 2.50 L, Hgb 7.9 L, Hct 24.5 L, MCV 98.0 H, MCH 31.6, MCHC 32.2, RDW Std Deviation 48.9 H, RDW Coeff of [place] 14.2, Plt Count 156, MPV 9.4, Immature Gran % (Auto) 2.300 H, Neut % (Auto) 61.1, Lymph % (Auto) 27.4, [place] % (Auto) 6.9, Eos % (Auto) 1.9, Baso % (Auto) 0.4, Absolute Neuts (auto) 5.6, Absolute Lymphs (auto) 2.49, Nucleated RBC % 0.6 Current Medications Acetaminophen (Acetaminophen 325 Mg Tablet) 650 mg PO Q6H PRN PRN PRN Reason: Pain Score 1-10/Temp > 100.7 F Albuterol Sulfate (Albuterol 2.5 Mg/3 Ml Vial.Neb.) 2.5 mg INHALATION Q2H PRN PRN PRN Reason: Shortness of Breath/Wheezing Potassium Chloride/Sodium Chloride (Kcl 20meq In 0.45% Ns 1000ml) 1,000 mls @ 100 mls/hr IV .Q10H [facility] Last Admin: 11/23/20 00:38 Dose: 100 mls/hr Documented by: Pantoprazole Sodium 80 mg/ (Sodium Chloride) 100 mls @ 10 mls/hr CONT INF Q10H [facility] Last Admin: 11/23/20 00:38 Dose: 10 mls/hr Documented by: Sodium Chloride () 250 mls @ 15 mls/hr IV .[id number] PRN PRN Reason: Saline Flush Sodium Chloride () 250 mls @ 15 mls/hr IV .[id number] PRN PRN Reason: Additional IVPB Infusion Melatonin (Melatonin 3 Mg Tablet) 3 mg PO QHS PRN PRN PRN Reason: INSOMNIA Morphine Sulfate (Morphine 4 Mg/Ml Syringe) 4 mg IV Q3H PRN PRN PRN Reason: Pain Score 6-10 Ondansetron HCl (Ondansetron 4 Mg/2 Ml Vial) 4 mg IV Q8H PRN PRN PRN Reason: NAUSEA/VOMITING Oxycodone HCl (Oxycodone 5 Mg Tablet) 5 mg PO Q4H PRN PRN PRN Reason: Pain Score 4-5 Promethazine HCl (Promethazine 25 Mg/Ml Syringe) 25 mg IM Q6H PRN PRN PRN Reason: Breakthrough nausea/vomiting Sodium Chloride (0.9% Saline Lock 10 Ml Syringe) 10 - 40 ml IV UD PRN PRN Reason: SALINE FLUSH Last Admin: 11/21/20 10:08 Dose: 10 ml Documented by: Sucralfate (Sucralfate 1 Gm Tablet) 1 gm PO 1HR_ACHS ARIA Last Admin: 11/23/20 06:33 Dose: 1 gm Documented by: Discharge Diet: Soft diet Discharge Activity: Return to Normal Activity Home Medications: Medications to take at Discharge Valacyclovir 1 tab PO TID 11/21/20 Iron Poly/Vit C [Niferex-150] 150 mg PO DAILYCM #60 cap 11/23/20 Pantoprazole Sodium 40 mg PO BID #60 tablet. 11/23/20 Sucralfate [Carafate] 1 gm PO 1HR_ACHS #120 tab 11/23/20 Following Prescriptions Were Given to Patient: Sucralfate [Carafate] 1 gm PO 1HR_ACHS #120 tab Transmission Status: Received by [id number] Iron Poly/Vit C [Niferex-150] 150 mg PO DAILYCM #60 cap Transmission Status: Received by [id number] Pantoprazole Sodium 40 mg PO BID #60 tablet. Transmission Status: Received by [id number] Other Amb Orders: HH, Hemoglobin & Hematocrit Time Frame: 11/27/20, Facility: [facility], Location: Laboratory Primary Care Physician: Kristyn Crouch PA-C [Primary Care Provider] - Please Follow Up With: Esther Collier MD When: NEXT WEEK Disposition: Home Minutes spent on discharge:: 35 Patient Condition:: Stable Medical Necessity - Tobacco Use Smoking Status: Former smoker Tobacco Use: Cigars Meaningful Use Info Meaningful Use Diagnoses (Choose all that apply): None applicable Inpatient E&M: 44698 Disch Hosp
[2020-11-23 08:58] VITALS: BP 133/65; PULSE 99; RESP 18; TEMP 36.8; O2SAT 100
--- NOTE | 2020-11-23 09:03 | PCM.PN.SRG ---
Patient Problems: Active and Suspected Problems (Last Reviewed 11/21/20 @ 10:[address] Elijah Escalante MD) UGIB (upper gastrointestinal bleed) (Acute) Acute blood loss anemia (Acute) Subjective: Patient doing well has no complaints. Patient's hemoglobin is 7.9 get did get 1 unit packed red blood cells yesterday , Patient has been drinking well and urinating. - Physical Exam Vitals/I&O's: Vital Signs Temp Pulse Resp BP Pulse Ox 98.3 F 99 18 133/65 H 100 11/23/20 08:58 11/23/20 08:58 11/23/20 08:58 11/23/20 08:58 11/23/20 08:58 Oxygen Flow Rate (L/min) 4 Oxygen Delivery Method Room Air Weight: 289 lb 14.526 oz Body Mass Index (BMI) 41.5 Intake and Output for Last 24 Hours 11/21/20 11/22/20 11/23/20 23:59 23:59 23:59 Intake Total 2353.33 / 2353.33 3894.17 / 3894.17 1373.00 / 1373.00 Output Total 675 / 1075 4200 / 4200 900 / 900 Balance 1678.33 / 1278.33 -305.83 / -305.83 473.00 / 473.00 General: Alert, Oriented x3, Cooperative, No apparent distress HEENT: Atraumatic Lungs: Normal air movement Cardiovascular: Regular rate Abdomen: Soft, Non Tender, Non-Distended Microbiology Past 72 Hours 11/21/20 07:25 Mucosa - Nose SARS-CoV-2 Antigen (Rapid) - Final Laboratory Results 11/21/20 06:16: Blood Type O POSITIVE, Antibody Screen NEGATIVE, Crossmatch See Detail 11/22/20 18:05: Hgb 8.3 L, Hct 26.5 L 11/23/20 05:35: Sodium 142, Potassium 4.4, Chloride 112 H, Carbon Dioxide 27.0, Anion Gap 3 L, BUN 12, Creatinine 1.05, Estim Creat Clear Calc 93.66, Est GFR (MDRD) Af Amer 99, Est GFR (MDRD) Non-Af 82, BUN/Creatinine Ratio 11.4, Glucose 90, Calcium 8.2 L 11/23/20 05:35: WBC 9.1, RBC 2.50 L, Hgb 7.9 L, Hct 24.5 L, MCV 98.0 H, MCH 31.6, MCHC 32.2, RDW Std Deviation 48.9 H, RDW Coeff of [place] 14.2, Plt Count 156, MPV 9.4, Immature Gran % (Auto) 2.300 H, Neut % (Auto) 61.1, Lymph % (Auto) 27.4, [place] % (Auto) 6.9, Eos % (Auto) 1.9, Baso % (Auto) 0.4, Absolute Neuts (auto) 5.6, Absolute Lymphs (auto) 2.49, Nucleated RBC % 0.6 Current Medications Acetaminophen (Acetaminophen 325 Mg Tablet) 650 mg PO Q6H PRN PRN PRN Reason: Pain Score 1-10/Temp > 100.7 F Albuterol Sulfate (Albuterol 2.5 Mg/3 Ml Vial.Neb.) 2.5 mg INHALATION Q2H PRN PRN PRN Reason: Shortness of Breath/Wheezing Potassium Chloride/Sodium Chloride (Kcl 20meq In 0.45% Ns 1000ml) 1,000 mls @ 100 mls/hr IV .Q10H [facility] Last Admin: 11/23/20 00:38 Dose: 100 mls/hr Documented by: Pantoprazole Sodium 80 mg/ (Sodium Chloride) 100 mls @ 10 mls/hr CONT INF Q10H [facility] Last Admin: 11/23/20 00:38 Dose: 10 mls/hr Documented by: Sodium Chloride () 250 mls @ 15 mls/hr IV .[id number] PRN PRN Reason: Saline Flush Sodium Chloride () 250 mls @ 15 mls/hr IV .[id number] PRN PRN Reason: Additional IVPB Infusion Melatonin (Melatonin 3 Mg Tablet) 3 mg PO QHS PRN PRN PRN Reason: INSOMNIA Morphine Sulfate (Morphine 4 Mg/Ml Syringe) 4 mg IV Q3H PRN PRN PRN Reason: Pain Score 6-10 Ondansetron HCl (Ondansetron 4 Mg/2 Ml Vial) 4 mg IV Q8H PRN PRN PRN Reason: NAUSEA/VOMITING Oxycodone HCl (Oxycodone 5 Mg Tablet) 5 mg PO Q4H PRN PRN PRN Reason: Pain Score 4-5 Promethazine HCl (Promethazine 25 Mg/Ml Syringe) 25 mg IM Q6H PRN PRN PRN Reason: Breakthrough nausea/vomiting Sodium Chloride (0.9% Saline Lock 10 Ml Syringe) 10 - 40 ml IV UD PRN PRN Reason: SALINE FLUSH Last Admin: 11/21/20 10:08 Dose: 10 ml Documented by: Sucralfate (Sucralfate 1 Gm Tablet) 1 gm PO 1HR_ACHS ARIA Last Admin: 11/23/20 06:33 Dose: 1 gm Documented by: Medical Necessity - Tobacco Use Smoking Status: Former smoker Tobacco Use: Cigars Assessment/Plan All Active Problems (Last Reviewed 11/21/20 @ 10:[address] Elijah Escalante MD) UGIB (upper gastrointestinal bleed) (Acute) Atypical chest pain (Resolved) Dyspnea (Resolved) Hemorrhagic shock (Resolved) Acute blood loss anemia (Acute) 45-year-old male with hematemesis, with superficial esophageal ulcer and gastric ulcers with adherent clots per EGD Advance to regular diet, will change his Protonix to 40 mg p.o. twice daily and continue Carafate on discharge. Anemia?7.9 hemoglobin after getting 1 unit packed red blood cells, patient has been drinking/urinating well question if this could have affected the hemoglobin. Will have patient get a repeat hemoglobin next Friday and follow-up with me in [address] oBris Collier M.D. Pager: [phone] [facility] [address] [place] [address], Outpatient [place], [address] [place] [address] Office: [phone] Inpatient E&M: [id number] [facility] Hosp L2
== END 2020-11-23 12:55 | disposition home or self-care (01) ==
LOC: ED 07:25 → EN 07:35 → AC 07:35 → EN 09:11 → MS3 11-22 07:06
PROVIDERS: Admitting Provider Internal Medicine; Emergency Provider Emergency Medicine; PCP Family Medicine; Referring Provider Surgery; Visit Provider Internal Medicine
PROC: 0DJ08ZZ Inspection of Upper Intestinal Tract, Via Natural or Artificial Opening Endoscopic (ICD-10-PCS; CPT 43235; principal; 2020-11-21 07:55)
DX: D62 Acute posthemorrhagic anemia (principal); K25.4 Chronic or unspecified gastric ulcer with hemorrhage; I25.10 Atherosclerotic heart disease of native coronary artery without angina pectoris; I10 Essential (primary) hypertension; E78.5 Hyperlipidemia, unspecified; Z20.828 Contact with and (suspected) exposure to other viral communicable diseases; Z95.5 Presence of coronary angioplasty implant and graft; Z87.891 Personal history of nicotine dependence; Z79.899 Other long term (current) drug therapy; G51.0 Bell's palsy; E66.9 Obesity, unspecified; Z68.41 Body mass index [BMI] 40.0-44.9, adult
CPT/HCPCS: 43239; 36415; 36430; 74018; 80048; 80053; 80076; 83690; 83735; 84100; 85014; 85018; 85025; 85610; 85730; 86850; 86900; 86901; 86920; 86922; 87426; 88305; 88342; 93005; 96365; 96366; 96368; 96375; 99285; J7030; J7040; J7050; P9016; A4216; J2405; J2916; J3490

== ENCOUNTER → 2020-12-05 14:34 | Outpatient (CLI) | payer SELFPAY ==
[2020-12-05 13:48] VITALS: BMI 41.6
[2020-12-05 14:44] LABS: Hematocrit 36.6 % (40-54); Hemoglobin 11.2 g/dL (13.0-16.5)
== END ==
LOC: LAB 14:34
PROVIDERS: PCP Family Medicine; Referring Provider Physician Assistant Medical; Visit Provider Physician Assistant Medical
DX: D62 Acute posthemorrhagic anemia (principal)
CPT/HCPCS: 36415; 85014; 85018

== ENCOUNTER → 2021-08-15 14:34 | Outpatient (CLI) | payer SELFPAY ==
[2021-08-15 16:51] LABS: AST(SGOT) 44 U/L (15-37); Alanine Aminotransfer ALT/SGPT 77 U/L (16-61); Alkaline Phosphatase 63 U/L (45-117); Anion Gap 4 (5-15); BUN 11 mg/dL (7-18); BUN/Creat Ratio 9.7 RATIO (10-20); Bilirubin, Direct 0.12 mg/dL (0.00-0.30); Chloride 103 mmol/L (98-107); Cholesterol 231 mg/dL (200); Creatinine, Serum 1.13 mg/dL (0.70-1.30); EST Glomerular Filtration Rate 75 mL/min (>60); Est Glom Filt Rate - Afr Amer 90 mL/min (>60); Globulin 3.8 g/dL (2.2-4.2); Glucose 89 mg/dL (74-106); High Density Lipoprotein 34 mg/dL; Potassium 4.4 mmol/L (3.5-5.1); Protein, Total 7.8 g/dL (6.4-8.2); Sodium Level 134 mmol/L (136-145); Triglycerides 200 mg/dL; Very Low Density Lipoprotein 40 mg/dL (5-40)
== END ==
PROVIDERS: PCP Family Medicine; Referring Provider Physician Assistant Medical; Visit Provider Physician Assistant Medical
DX: I25.10 Atherosclerotic heart disease of native coronary artery without angina pectoris (principal); E78.5 Hyperlipidemia, unspecified
CPT/HCPCS: 36415; 80048; 80061; 80076

== ENCOUNTER 2024-05-24 08:05 | Emergency (ER) | payer SELFPAY ==
[2024-05-24] VITALS (7 sets, daily range): BP systolic 132–148; BP diastolic 65–95; PULSE 60–79; RESP 11–18; TEMP 36.6; O2SAT 96–99; BMI 40.1
--- NOTE | 2024-05-24 08:15 | EKG12_ITS ---
Test Reason : CP Blood Pressure : / mmHG Vent. Rate : 073 BPM Atrial Rate : 073 BPM P-R Int : 148 ms QRS Dur : 100 ms QT Int : 358 ms P-R-T Axes : 033 -14 014 degrees QTc Int : 394 ms Normal sinus rhythm Normal ECG Confirmed by NADYA HOOD, RHINA ([id number]), field map editor ROGELIO BAINS ([id number]) on 05/26/2024 9:27:43 AM Referred By: SIMBA Confirmed By:RHINA COVINGTON MD
--- NOTE | 2024-05-24 08:25 | RAD_ITS ---
STUDY: X-RAY CHEST REASON FOR EXAM: Male, 49 years old. Chest pain, shortness of breath and dizziness. TECHNIQUE: Single AP portable view of the chest. COMPARISON: Comparison is made with prior chest radiograph dated May 14, 2020. FINDINGS: EKG electrodes are seen. The lungs are clear and expanded. There is no demonstrated pleural abnormality. Normal size heart. Normal mediastinum and wildre. Normal visualized pulmonary arteries. Normal visualized aortic arch and descending thoracic aorta. Normal visualized thoracic spine. Normal visualized ribs, clavicles, and shoulders. There is no demonstrated abnormality of the visualized soft tissue structures of the upper abdomen. RAD/Chest 1 View (Portable) IMPRESSION: Normal x-ray examination of the chest. Electronically Signed: Neel Begum MD at 8:52 EDT ,
[2024-05-24 08:31] LABS: Absolute Neutrophil Count 3.1 X10^3/uL (2.0-7.7); Basophil# 0.06 X10^3/uL; Eosinophil# 0.15 X10^3/uL; Eosinophils% 2.5 % (0-5); Hematocrit 47.7 % (40-54); Hemoglobin 15.8 g/dL (13.0-16.5); Lymphocyte % 33.6 % (19-41); Mean Corp Hgb Conc 33.1 g/dL (32-36); Mean Corpuscular Volume 93.7 fL (80-94); Mean Platelet Vol. 10.1 fl (6.2-12.0); Monocyte# 0.58 X10^3/uL; Monocyte% 9.7 % (0-10); NRBC Flagged by Analyzer 0 % (0-5); Neutrophil # 3.13 X10^3/uL (2.7-7.7); Neutrophil % 52.5 % (47-70); Platelet Count 225 K/mm3 (150-450); RBC Distribution Width CV 12.1 % (11.6-14.6); RBC Distribution Width SD 41.6 fl (35.1-43.9); Red Blood Count 5.09 M/mm3 (4.6-6.2)
--- NOTE | 2024-05-24 08:36 | ED.VIS.CHEST ---
HPI History of Present Illness Chief Complaint: Chest Pain Informant: patient and spouse/S.O. Onset/Context/Timing Onset: Days (3) Timing: Intermittent Quality: Positive for Sharp and - (cramp) Location: Left Chest (w/o radiation) Current Severity: Mild Maximum Severity: Moderate Worsened By: Nothing Relieved By: - (going for a walk) Associated Symptoms: Positive for Dyspnea, Cough (minor [employer]), Lightheadedness and - (malaise. migraine last couple days, resolved now.); Negative for Nausea, Vomiting, Diaphoresis, Fever or Palpitations Narrative Narrative: 49-year-old male states has been having intermittent left-sided chest discomfort for the last few days. States he is pretty sure this is anxiety but he has 2 stents and states he thought it was anxiety then but then he ended up having abnormal troponins that led to heart cath and a couple stents this was 7 or 8 years ago in [place]. He states it has been off-and-on for the last 3 days, seems to be better when he goes for a walk, but since it occurred again this morning, he decided to have it checked out to make sure it is not his heart. He had a lot of symptoms. He feels really cold, states my temperature is usually 99-100. His temp is 98.0 here today. He states this morning the pain has been there for about 1.5 hours or less. It is eased off now and just mildly sore. [facility] Medical History Gastric ulcer Obesity UGIB (upper gastrointestinal bleed) Hyperlipidemia Atherosclerosis of coronary artery of [place] heart without angina pectoris Hemorrhagic shock Home Medications ?Medication ?Instructions ?Recorded ?Last Taken ?Type atorvastatin 10 mg tablet 10 mg PO QHS #90 tabs 08/17/21 Unknown Rx clopidogrel 75 mg tablet (Plavix) 75 mg PO DAILY #90 tabs 08/17/21 Unknown Rx acetaminophen 500 mg tablet 500 mg PO Q6H PRN fever or pain 05/24/24 Unknown History (Acetaminophen Extra Strength) Allergy/AdvReac Type Severity Reaction Status Date / Time No Known Allergies Allergy Verified 05/24/24 08:05 Family History Grandfather Heart disease Surgical History History of esophagogastroduodenoscopy (EGD) (11/2020) History of cholecystectomy (09/2021) History of coronary artery stent placement (09/18/17) Social History Smoking Status: Former smoker alcohol intake: never substance use type: does not use caffeine: No ROS ROS ED Constitutional Constitutional ED: Reports fatigue, headache(s) and malaise; Denies body ache(s), chills or fever(s) Eyes Eyes: Denies change in vision or diplopia ENT ENT ED: Denies rhinorrhea or sore throat Cardiovascular Cardiovascular: Reports chest pain; Denies palpitations Respiratory/Chest Respiratory/Chest: Reports cough and dyspnea; Denies dyspnea on exertion or sputum Gastrointestinal Gastrointestinal: Reports diarrhea; Denies abdominal pain, nausea or vomiting Genitourinary Genitourinary ED: Denies dysuria or hematuria Musculoskeletal Musculoskeletal: Denies back pain or neck pain Integumentary Denies abscess or rash Neurologic Neurologic: Reports headache(s); Denies paresthesias or weakness Psychiatric Psychiatric: Reports anxiety; Denies suicidal thoughts EXAM Physical Exam Const Vital Signs: 05/24/24 08:06 05/24/24 08:16 05/24/24 09:05 Temperature 98 F Temperature Source Temporal Pulse Rate 79 67 Respiratory Rate 18 13 Blood Pressure 148/84 H 132/80 H Blood Pressure Mean 105 97 Pulse Ox 98 98 Oxygen Delivery Method Room Air Room Air 05/24/24 10:00 05/24/24 11:00 05/24/24 12:00 Temperature Temperature Source Pulse Rate 77 62 63 Respiratory Rate 12 11 L 18 Blood Pressure 135/85 H 137/65 H 141/87 H Blood Pressure Mean 101 89 105 Pulse Ox 96 99 96 Oxygen Delivery Method Room Air Room Air Room Air 05/24/24 12:56 Temperature Temperature Source Pulse Rate 61 Respiratory Rate 17 Blood Pressure 141/87 H Blood Pressure Mean 105 Pulse Ox 97 Oxygen Delivery Method Room Air Positive well nourished and well developed Constitutional Narrative: Well-appearing, no distress General Appearance ED: well developed and NAD HEENT Reports moist mucous membranes normocephalic and atraumatic Eyes PERRL and EOMs intact bilaterally Neck full ROM and supple Chest Wall inspection of chest normal and palpation of chest normal Resp normal respiratory effort and clear to auscultation bilaterally Resp Narrative: no splinting on deep inspiration Cardio regular rate, regular rhythm and no murmurs Rate: Negative for tachycardic GI non-tender and non-distended Auscultation: normoactive bowel sounds Palpation: soft Back/Spine no CVA tenderness General Back: other FROM Extremity normal to inspection and no calf tenderness General Extremety ED: Negative for edema, pulses abnormal or tenderness General Extremity: Negative for edema or pulses abnormal Neuro oriented x3, CN's II-XII intact bilaterally and no sensory deficits noted Sensorium / Orientation: awake and alert Motor Exam: strength 5/5 throughout Psych mental status grossly normal Skin no rashes or lesions noted and no wounds Heart Score History: Slightly/Non-Suspicious ECG: Normal Age: >45 - <65 years Risk Factors: >/= 3 Risk Factors or History of CAD Troponin: </= Normal Limit Score: 3 MDM MDM MDM Narrative Medical decision making narrative: Obtain labs, EKG, chest x-ray, the EKG is normal and 2 sequential troponin measurements are also normal with them actually trending down. During this observation period, the patient states that the discomfort in his left chest resolved and instead he was then having some discomfort in his left upper arm. With 2 negative troponins after having discomfort for several days, and all morning since he has been here and the hour or 2 before that, I do not think he needs further emergent provocative testing. This is more likely to be esophageal in etiology, he is wondering if it is anxiety was at show not able to rule out, but at this time I have deemed him safe for discharge and close outpatient follow-up he is comfortable with that plan. Lab Data Attestation: I reviewed the patient's lab results. Labs: Laboratory Results - last 24 hr 05/24/24 05/24/24 08:18 10:50 WBC 6.0 RBC 5.09 Hgb 15.8 Hct 47.7 MCV 93.7 MCH 31.0 MCHC 33.1 RDW Std Deviation 41.6 RDW Coeff of [place] 12.1 Plt Count 225 MPV 10.1 Immature Gran % (Auto) 0.700 Neut % (Auto) 52.5 Lymph % (Auto) 33.6 [place] % (Auto) 9.7 Eos % (Auto) 2.5 Baso % (Auto) 1.0 Absolute Neuts (auto) 3.1 Absolute Lymphs (auto) 2.00 Nucleated RBC % 0 Sodium 137 Potassium 3.8 Chloride 107 Carbon Dioxide 25.0 Anion Gap 5 BUN 12 Creatinine 1.01 Estim Creat Clear Calc 115.37 Est GFR (MDRD) Af Amer 102 Est GFR (MDRD) Non-Af 84 BUN/Creatinine Ratio 11.9 Glucose 118 H Calcium 9.2 Troponin I High Sens 17 14 Radiography Chest X-Ray - ED: 1 View, Read by ED Physician, No Acute Disease and No Infiltrates Diagnostic Testing: Clinical Impression(s) from Imaging Studies Chest X-Ray 05/24/24 08:25 IMPRESSION: Normal x-ray examination of the chest. Electronically Signed: Neel Begum MD at 8:52 EDT , Rhythm Strip Rhythm Strip: Sinus Rhythm Rate: 70 Ectopy: None EKG Initial EKG: Attestation: I personally reviewed and interpreted this EKG as follows: Interpretation: Sinus Rhythm and No Acute Injury Pattern Comments: normal EKG Prior EKG tracings: available for review Prior: Unchanged Discharge Plan Triage Chief Complaint: Chest Pain ED Provider: Taz Berger Dx/Rx/DC Orders Clinical Impression: Chest pain, non-cardiac Instructions: ED Chest Pain, Noncardiac Prescriptions: No Action acetaminophen [Acetaminophen Extra Strength] 500 mg tablet 500 mg PO Q6H PRN (Reason: fever or pain) atorvastatin 10 mg tablet 10 mg PO QHS Qty: 90 3RF clopidogrel [Plavix] 75 mg tablet 75 mg PO DAILY Qty: 90 3RF Primary Care Provider: Kristyn Crouch Referrals: Kristyn Crouch PA-C [Primary Care Provider] - 3-5 Days if not improving Print Language: Faroese Disposition Disposition: Home, Self Care
[2024-05-24 08:43] LABS: Anion Gap 5 (5-15); BUN 12 mg/dL (7-18); BUN/Creat Ratio 11.9 RATIO (10-20); Calcium,Total 9.2 mg/dL (8.5-10.1); Chloride 107 mmol/L (98-107); Creatinine, Serum 1.01 mg/dL (0.70-1.30); EST Glomerular Filtration Rate 84 mL/min (>60); Est Glom Filt Rate - Afr Amer 102 mL/min (>60); Estimated Creatinine Clearance 115.37 ml/min; Glucose 118 mg/dL (74-106); Potassium 3.8 mmol/L (3.5-5.1); Sodium Level 137 mmol/L (136-145); Troponin-I HS (w/2H Reflex) 17 pg/mL (3.0-78.0)
[2024-05-24 10:22] LABS: Reflex Troponin-HS? (from REC) Y
[2024-05-24 11:15] LABS: Troponin-I HS 14 pg/mL (3.0-78.0)
== END 2024-05-24 13:09 | disposition home or self-care (01) ==
PROVIDERS: Emergency Provider Emergency Medicine; PCP Family Medicine; Visit Provider Emergency Medicine
DX: R07.89 Other chest pain (principal); Z87.891 Personal history of nicotine dependence; I25.10 Atherosclerotic heart disease of native coronary artery without angina pectoris; E78.5 Hyperlipidemia, unspecified; R06.00 Dyspnea, unspecified; R05.9 Cough, unspecified; R42 Dizziness and giddiness; F41.9 Anxiety disorder, unspecified; Z95.5 Presence of coronary angioplasty implant and graft; R51.9 Headache, unspecified
CPT/HCPCS: 71045; 80048; 84484; 85025; 93005; 99284; A4216